=== PATIENT | male | born 2000 | race Caucasian/White ===

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

== ENCOUNTER 2019-07-24 07:08 | Emergency (ER) | payer SELFPAY ==
[~2019-07-24] VITALS: Ht 182.8 cm; Wt 93.7 kg
[~2019-07-24 07:08] MED LIST changes: +HYDR-4227 PO; -HYDR-756 PO; -TAMS0.4C98 PO; +TMSL.4C PO
--- NOTE | 2019-07-24 07:26 | ED GU-Male ---
General Stated Complaint: LOWER BACK PAIN Source: patient Exam Limitations: no limitations History of Present Illness Date Seen by Provider: Jul 24, 2019 Time Seen by Provider: 07:24 Initial Comments 18-year-old male presents with right flank pain. Patient reports that he has a history of kidney stones and this feels very similar. That he had pain this star angy yesterday in the right flank. That the last time he had pain this bad he had a have "laser surgery" to take the stone out. He denies any nausea or vomiting. He denies any fevers or chills. He does not complain of any blood in his urine at this time. And no dysuria. Allergies and Home Medications Allergies Coded Allergies: No Known Drug Allergies (Unverified , 01/11/17) Home Medications Hydrocodone/Acetaminophen 1 Each Tablet, 1 TAB PO Q6H Prescribed by: GINO ZIEGLER on 07/24/19 0901 Metoclopramide HCl 10 Mg Tablet, 10 MG PO Q8H Prescribed by: GION ZIEGLER on 07/24/19 0900 Prednisone 20 Mg Tab, 20 MG PO DAILY Prescribed by: SHAKIRA WYNN on 10/26/17 1550 Sulfamethoxazole/Trimethoprim 1 Each Tablet, 1 EACH PO BID Prescribed by: GINO ZIEGLER on 07/24/19 0900 Tamsulosin HCl 0.4 Mg Cap, 0.4 MG PO DAILY Prescribed by: GINO ZIEGLER on 07/24/19 0900 Patient Home Medication List Home Medication List Reviewed: Yes Review of Systems Review of Systems Constitutional: No chills, No dizziness, No fever Respiratory: No cough, No short of breath Cardiovascular: No chest pain, No palpitations Gastrointestinal: No abdominal pain, No nausea, No vomiting Genitourinary: denies burning, denies dysuria, denies frequency; flank pain; denies hematuria Musculoskeletal: no symptoms reported Skin: no symptoms reported Psychiatric/Neurological: No Symptoms Reported Past Vcdhhmu-Drezbz-Xtuaov Hx Past Med/Social Hx: Reviewed Nursing Past Med/Soc Hx Patient Social History Recent Hopitalizations: No Immunizations Up To Date PED Vaccines UTD: Yes Date of Influenza Vaccine: Feb 29, 2016 Seasonal Allergies Seasonal Allergies: No Past Medical History Surgeries: Yes Adenoidectomy, Tonsillectomy Respiratory: No Cardiac: No Neurological: No Reproductive Disorders: No Sexually Transmitted Disease: No HIV/AIDS: No Genitourinary: Yes Kidney Infection Gastrointestinal: No Musculoskeletal: No Endocrine: No HEENT: No Loss of Vision: Denies Hearing Impairment: Denies Cancer: No Psychosocial: No Integumentary: No Blood Disorders: No Adverse Reaction/Blood Tranf: No Family Medical History No Pertinent Family Hx Physical Exam Vital Signs Vital Signs - First Documented 07/24/19 07/24/19 07:17 09:25 Temp 36.8 Pulse 86 Resp 18 B/P (MAP) 148/87 (107) Pulse Ox 99 O2 Delivery Room Air Capillary Refill : Height, Weight, BMI Height: 6'0" Weight: 155lbs. 0.0oz. [id number]; 21.3 BMI Method:Stated General Appearance: WD/WN, no apparent distress HEENT: normal ENT inspection, TMs normal Neck: supple Cardiovascular: normal peripheral pulses, regular rate, rhythm Respiratory: chest non-tender, lungs clear Gastrointestinal: non tender, soft Back: CVA tenderness (R) Neurologic/Psychiatric: card setter II-XII nml as tested, alert, normal mood/affect, oriented x 3 Skin: normal color, warm/dry Progress/Results/Core Measures Suspected Sepsis SIRS Temperature: Pulse: Respiratory Rate: Blood Pressure / Mean: Results/Orders Lab Results Laboratory Tests Test 07/24/19 07:51 Range/Units Urine Color YELLOW Urine Clarity SL CLOUDY Urine pH 6.0 5-9 Urine Specific [place] >=1.030 1.016-1.022 Urine Protein TRACE H NEGATIVE Urine Glucose (UA) NEGATIVE NEGATIVE Urine Ketones NEGATIVE NEGATIVE Urine Nitrite NEGATIVE NEGATIVE Urine Bilirubin NEGATIVE NEGATIVE Urine Urobilinogen 0.2 < = 1.0 MG/DL Urine Leukocyte Esterase NEGATIVE NEGATIVE Urine RBC (Auto) 3+ H NEGATIVE Urine RBC >100 H /HPF Urine WBC 2-5 /HPF Urine Crystals NONE /LPF Urine Bacteria TRACE /HPF Urine Casts NONE /LPF Urine Mucus SMALL H /LPF Urine Culture Indicated NO My Orders Orders - GINO ZIEGLER DO Ct Abd/Pelvis Wo(Kidney Stone) (07/24/19 07:27) Abdomen/Kub 1view (07/24/19 07:27) Ed Iv/Invasive Line Start (07/24/19 07:27) Ua Culture If Indicated (07/24/19 07:27) Ketorolac Injection (Toradol Injection) (07/24/19 07:30) Ed Iv/Invasive Line Start (07/24/19 07:27) Lactated Ringers (Lr 1000 Ml Iv Solution (07/24/19 07:27) Medications Given in ED Current Medications Medications Dose Ordered Sig/Macey Route Start Time Stop Time Status Last Admin Dose Admin Ketorolac Tromethamine 15 mg ONCE ONCE IV 07/24/19 07:30 07/24/19 07:31 DC 07/24/19 07:40 15 MG Lactated Ringer's 1,000 ml @ 0 mls/hr Q0M ONCE IV 07/24/19 07:27 07/24/19 07:28 DC 07/24/19 07:39 1,000 MLS/HR Vital Signs/I&O 07/24/19 07/24/19 07:17 09:25 Temp 36.8 Pulse 86 72 Resp 18 18 B/P (MAP) 148/87 (107) 141/72 Pulse Ox 99 O2 Delivery Room Air Capillary Refill : Progress Note : Time: 11:30 Progress Note Patient with recurrent kidney stone. I reviewed CT results with him and recommended he either call or go over to Dr. Lubin's office on discharged from the emergency room to arrange for an of follow-up in the next 2-3 days. Patient was placed on Flomax, Bactrim and given pain and nausea medication. Patient was discharged home in stable condition. Diagnostic Imaging Comments [place] NAME: PRECIOUS WALDEN Isidro [facility] REC#: [id number] PT STATUS: REG ER : 2000 PHYSICIAN: GINO ZIEGLER DO ADMIT DATE: 07/24/19/ER Draft Date of Exam:07/24/19 CT ABD/PELVIS WO(KIDNEY STONE) PROCEDURE: CT urinary tract, rule out kidney stone. TECHNIQUE: Multiple contiguous axial images were obtained through the abdomen and pelvis without the use of intravenous contrast. Auto Exposure Controls were utilized during the CT exam to meet ALARA standards for radiation dose reduction. INDICATION: Right-sided pain, low back pain. History of renal stones. CORRELATION STUDY: 11/10/2017 FINDINGS: There is approximately 5 to 6 mm stone at the proximal right ureter. This is located at the plain at the approximately L3 level. There is slight asymmetric engorgement of the right kidney with tyjd-nr-icasfiry right-sided obstruction. An additional 4 mm nonobstructing stone at the interpolar region right kidney. Left kidney and collecting system unremarkable. The remainder of the abdominal structures appearing generally unremarkable on noncontrast imaging. Unenhanced liver is borderline enlarged. Gallbladder, spleen, pancreas and bilateral adrenal glands are unremarkable. Abdominal aorta normal in contour. Gastrointestinal tract with mild severity fecal retention. No obstruction or definitive inflammation. A few scattered colonic diverticuli are present. There is presence of a normal appendix low in the right hemipelvis. Urinary bladder relatively decompressed. Prostate gland and seminal vesicles appear unremarkable. A few calcifications are present appearing to be outside the course of the distal ureters. Visualized lung bases appearing clear. Heart size is borderline enlarged. Visualized osseous structures appearing unremarkable. Benign appearing sclerotic foci left pubic symphysis. IMPRESSION: 1. Ilfn-dr-auslotit right-sided obstructive uropathy owing to an approximately 5 to 6 mm stone located in the proximal right ureter. 2. Additional non-obstructing stone right kidney. Departure Impression Primary Impression: Ureteral calculus, left Disposition: 01 HOME, SELF-CARE Condition: Stable Departure-Patient Inst. Referrals: DENICE ALARCON MD (PCP) Primary Care Physician MANSOOR LESTER (Family) Primary Care Physician Patient Instructions: How to Strain Your Urine, Kidney Stones (DC), Renal Colic Add. Discharge Instructions: Please call Dr. Lubin upon discharge to arrange a follow-up time in the next 1- 2 days Scripts Metoclopramide HCl (Reglan) 10 Mg Tablet 10 MG PO Q8H for Nausea/Vomiting, #14 TAB Prov: GINO ZIEGLER DO 3/4/20 Hydrocodone/Acetaminophen (Rincon 5-325 Tablet) 1 Each Tablet 1 TAB PO Q6H for Pain MDD 10 TABS, #8 TAB Prov: MELANIE ZIEGLERR L DO 3/4/20 Sulfamethoxazole/Trimethoprim (Bactrim Ds Tablet) 1 Each Tablet 1 EACH PO BID, #14 TAB Prov: MELANIE ZIEGLERR L DO 3/4/20 Tamsulosin HCl (Flomax) 0.4 Mg Cap 0.4 MG PO DAILY, #14 CAP Prov: MELANIE ZIGELERR L DO 3/4/20 GINO ZIEGLER DO Jul 24, 2019 07:26
[2019-07-24] MEDS ORDERED: LACTATED RINGERS 1,000 ML IV ONE (07:27)
[2019-07-24] MEDS ORDERED: KETOROLAC 30 MG/ML VIAL IV ONE (07:30)
[2019-07-24 07:54] LABS: BILIRUBIN,URINE NEGATIVE (NEGATIVE); CLARITY,URINE SL CLOUDY; COLOR,URINE YELLOW; GLUCOSE, URINE (UA) NEGATIVE (NEGATIVE); KETONES,URINE NEGATIVE (NEGATIVE); LEUKOCYTE ESTERASE ,URINE NEGATIVE (NEGATIVE); NITRITE,URINE NEGATIVE (NEGATIVE); PROTEIN,URINE TRACE (NEGATIVE)
[2019-07-24 08:03] LABS: BACTERIA,URINE TRACE /HPF; RBC,URINE >100 /HPF
--- NOTE | 2019-07-24 08:27 | Diagnostic Imaging Report ---
PROCEDURE: CT urinary tract, rule out kidney stone. TECHNIQUE: Multiple contiguous axial images were obtained through the abdomen and pelvis without the use of intravenous contrast. Auto Exposure Controls were utilized during the CT exam to meet ALARA standards for radiation dose reduction. INDICATION: Right-sided pain, low back pain. History of renal stones. CORRELATION STUDY: 11/10/2017 FINDINGS: There is approximately 5 to 6 mm stone at the proximal right ureter. This is located at the plain at the approximately L3 level. There is slight asymmetric engorgement of the right kidney with ebnb-pj-ucgqgvax right-sided obstruction. An additional 4 mm nonobstructing stone at the interpolar region right kidney. Left kidney and collecting system unremarkable. The remainder of the abdominal structures appearing generally unremarkable on noncontrast imaging. Unenhanced liver is borderline enlarged. Gallbladder, spleen, pancreas and bilateral adrenal glands are unremarkable. Abdominal aorta normal in contour. Gastrointestinal tract with mild severity fecal retention. No obstruction or definitive inflammation. A few scattered colonic diverticuli are present. There is presence of a normal appendix low in the right hemipelvis. Urinary bladder relatively decompressed. Prostate gland and seminal vesicles appear unremarkable. A few calcifications are present appearing to be outside the course of the distal ureters. Visualized lung bases appearing clear. Heart size is borderline enlarged. Visualized osseous structures appearing unremarkable. Benign appearing sclerotic foci left pubic symphysis. IMPRESSION: 1. Dzts-zx-anttodiz right-sided obstructive uropathy owing to an approximately 5 to 6 mm stone located in the proximal right ureter. 2. Additional non-obstructing stone right kidney. Dictated by: Dictated on workstation # [id number]
--- NOTE | 2019-07-24 08:30 | Diagnostic Imaging Report ---
INDICATION: Flank pain. COMPARISON: CT abdomen and pelvis performed earlier same day. FINDINGS: The 4 mm stone in the proximal right ureter near the UPJ is noted by radiography. The other 3-4 mm stone in the upper pole of the right kidney is also present. Nonobstructive bowel gas pattern. No free intraperitoneal air. Normal regional skeleton. IMPRESSION: 1. The proximal right ureteral stone and right renal stone are both seen by radiography, but better characterized by recent CT. Dictated by: Dictated on workstation # [id number]
[2019-07-24] MEDS ORDERED: METO-310 PO (09:00)
[2019-07-24] MEDS ORDERED: HYDR-4226 PO (09:00)
[2019-07-24] MEDS ORDERED: SULF1TAB35 PO (09:00)
[2019-07-24] MEDS ORDERED: TMSL.4C PO (09:00)
[2019-07-24 09:25] VITALS: BP 141/72
--- OUTSIDE RECORDS SUMMARY | 2019-07-29 05:37 | XMS REPORT | Clinical Summary ---
Author Author [facility] Organization [facility] Address Unknown Phone Unavailable Care Team Providers Care Active Directory Specialist Name Role Phone Norma Brewster MD PCP Source Comments Some departments are not documenting in the electronic medical record. If you d o not see the information that you expected, contact Release of Information in [facility] Information [employer] department at [phone] for further assistan ce in locating additional records.[facility] Allergies No Known Allergies Medications End Date Status Medication Sig Dispensed Refills Start Date Active NO HOME MEDICATIONS 0 Active oxyCODONE/acetaminophen Take 1 tablet 20 tablet 0 (ENDOCET) 5/325 mg tablet by mouth 7 every 4 hours as needed for Pain Active hyoscyamine sulfate Place 1 60 tablet 2 (LEVSIN/SL) 0.125 mg tablet under 7 sublingual tablet tongue every 4 hours as needed (bladder spasms). Active oxybutynin chloride Take 1 tablet 60 tablet 3 02/19 (DITROPAN) 5 mg tablet by mouth 7 three times daily as needed (bladder spasms). Active Problems Problem Noted Date Kidney stones 02/16/2017 Renal stone 02/16/2017 Overview: Added automatically from request for jerry mirza [id number] Social History Date Tobacco Use Types Packs/Day Years Used Never Smoker Smokeless Tobacco: Never Used Drinks/Week oz/Week Comments Alcohol Use 1 Cans of beer 1.0 Yes Sex Assigned at Date Recorded Not on file Industry Job Start Date Occupation Not on file Not on file Not on file Travel End Travel History Travel Start No recent travel history available. Last Filed Vital Signs Reading Time Taken Comments Vital Sign 116/54 03/03/2017 3:30 PM CDT Blood Pressure 54 03/03/2017 3:30 PM CDT Pulse 36.9 C (98.5 F) 03/03/2017 3:30 PM CDT Temperature - - Respiratory Rate 100% 03/03/2017 3:30 PM CDT Oxygen Saturation - - Inhaled Oxygen Concentration 68 kg (149 lb 14.6 oz) 03/03/2017 11:50 AM CDT Weight 188 cm (6' 2") 02/23/2017 10:40 AM CDT Height 19.25 02/23/2017 10:40 AM CDT Body Mass Index Plan of Treatment Health Maintenance Due Date Last Done Comments DTAP/TDAP VACCINES (1 - 2009 Tdap) HPV VACCINES (2 - Male 09/29/2013 04/01/2013 2-dose series) HIV SCREENING 2013 PHYSICAL (COMPREHENSIVE) 2016 EXAM INFLUENZA VACCINE 12/20/2018 MENINGOCOCCAL VACCINE Aged Out 04/01/2013 No longe r eligible based (ACWY,Menactra) on patient's age to complete this topic Implants Device Identifier Shelf Expiration Date Model / Serial / L ot Implanted Type Area Manufactur er 11/14/2019 [id number] / [id number] / [id number] Stent Ureteral 6fr 26cm Pigtail Right: Ureter BOSTO N Curve Taper Tip Bladder Cristian - [employer] [id number] UROLOGY Implanted: Qty: 1 on 03/03/2017 by Nish Owen MD at [facility] Results Not on filefrom Last 3 Months Insurance Type Payer Benefit Subscriber ID Effective Phone Address Plan / Dates Group Medicaid [facility] MEDICAID [facility] xxxxxxxxxxx [id number] [employer] [place] [place] Advance Directives Patient Installation Manager Explanation Type Date Recorded Advance Directive/DPOA
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
== END 2019-07-24 09:30 | disposition home or self-care (01) ==
LOC: EDUNIT# 07:08 → ER 07:09
DX: N20.1 Calculus of ureter (principal); Z79.52 Long term (current) use of systemic steroids
CPT/HCPCS: 74018; 74176; 81000

== ENCOUNTER 2019-07-27 14:44 | Emergency (ER) | payer SELFPAY ==
[~2019-07-27] VITALS: Ht 180 cm; Wt 90.0 kg
[~2019-07-27 14:44] MED LIST changes: +HYDR-4226 PO; +METO-310 PO
--- NOTE | 2019-07-27 15:22 | ED GU-Female ---
General Chief Complaint: - Urinary Stated Complaint: BACK / ABD PAIN Nursing Triage Note: THE PT IS AMBULATORY TO THE ROOM WITHOUT DIFFICULTY. NO DISTRESS IS SEEN ON ARRIVAL./ LOC IS NORMAL FOR THE PT. THE PT WAS SEEN HERE LAST MON. Nursing Sepsis Screen: No Definite Risk Source: patient Exam Limitations: no limitations History of Present Illness Date Seen by Provider: Jul 27, 2019 Time Seen by Provider: 15:22 Initial Comments 18-year-old male patient presents with complaints of right-sided kidney stone. Patient states the pain increased this a.m. Also complains of poor appetite and fluid intake d/t nausea. He denies fevers or chills. He has noted some difficulty with urination. Patient was seen in the emergency department by Dr. Ziegler on Monday and diagnosed with a right-sided kidney stone. Pt did not follow-up with Dr. Wilson or a primary care provider. Timing/Duration: getting worse, other (four-day onset) Severity/Quality: cramping, sharp Location: right flank Radiation: RLQ, back (right low back) Activities at Onset: none Prior Genitourinary Problems: similar symptoms Allergies and Home Medications Allergies Coded Allergies: No Known Drug Allergies (Unverified , 01/11/17) Home Medications Hydrocodone/Acetaminophen 1 Each Tablet, 1 TAB PO Q6H Prescribed by: GINO ZIEGLER on 07/24/19 0901 Hydrocodone/Acetaminophen 1 Each Tablet, 1 TAB PO Q4-6HR Prescribed by: ROMEL WOLFE on 07/27/19 174 Levofloxacin 500 Mg Tablet, 500 MG PO DAILY Prescribed by: ROMEL WOLFE on 07/27/19 174 Metoclopramide HCl 10 Mg Tablet, 10 MG PO Q8H Prescribed by: GINO ZIEGLER on 07/24/19 09 Phenazopyridine HCl 200 Mg Tablet, 1 TAB PO TID Prescribed by: ROMEL WOLFE on 07/27/19 174 Prednisone 20 Mg Tab, 20 MG PO DAILY Prescribed by: SHAKIRA WYNN on 10/26/17 1550 Sulfamethoxazole/Trimethoprim 1 Each Tablet, 1 EACH PO BID Prescribed by: GINO ZIEGLER on 07/24/19 09 Tamsulosin HCl 0.4 Mg Cap, 0.4 MG PO DAILY Prescribed by: GINO ZIEGLER on 07/24/19 0900 Patient Home Medication List Home Medication List Reviewed: Yes Review of Systems Review of Systems Constitutional: No chills, No diaphoresis, No fever, No malaise Respiratory: No cough, No phlegm, No short of breath Cardiovascular: No chest pain, No palpitations, No syncope Gastrointestinal: abdominal pain (RLQ); No constipation, No diarrhea, No hematemesis; loss of appetite; No melena; nausea; No vomiting Genitourinary: see HPI; denies burning, denies dysuria; frequency, flank pain (right flank pain), hematuria, pain, urgency, other (hesitancy) Musculoskeletal: see HPI, back pain (right low back pain) Skin: no symptoms reported Psychiatric/Neurological: No Symptoms Reported All Other Systemes Reviewed Negative Unless Noted: Yes (Negative excepted noted.) Past Ijrfdao-Dgvzsu-Svvyvc Hx Patient Social History Recent Foreign Travel: No Contact w/Someone Who Travel: No Recent Infectious Disease Expo: No Recent Hopitalizations: No Immunizations Up To Date PED Vaccines UTD: Yes Date of Influenza Vaccine: Feb 29, 2016 Seasonal Allergies Seasonal Allergies: No Past Medical History Surgeries: Yes (cystoscopy with lithotripsy) Adenoidectomy, Tonsillectomy Respiratory: No Cardiac: No Neurological: No Reproductive Disorders: No Sexually Transmitted Disease: No HIV/AIDS: No Genitourinary: Yes Kidney Infection, Kidney Stones Gastrointestinal: No Musculoskeletal: No Endocrine: No HEENT: No Loss of Vision: Denies Hearing Impairment: Denies Cancer: No Psychosocial: No Integumentary: No Blood Disorders: No Adverse Reaction/Blood Tranf: No Family Medical History Reviewed Nursing Family Hx No Pertinent Family Hx Physical Exam Vital Signs Vital Signs - First Documented 07/27/19 07/27/19 15:04 17:54 Temp 36.6 Pulse 94 Resp 18 B/P (MAP) 138/82 (100) Pulse Ox 98 Capillary Refill : Less Than 3 Seconds Height, Weight, BMI Height: 6'0" Weight: 155lbs. 0.0oz. 70.382206eb; 27.00 BMI Method:Stated General Appearance: WD/WN, mild distress HEENT: PERRL/EOMI, pharynx normal Neck: supple, normal inspection Cardiovascular: normal peripheral pulses, regular rate, rhythm, no edema, no gallop, no murmur Respiratory: lungs clear, normal breath sounds, no respiratory distress, no accessory muscle use Gastrointestinal: normal bowel sounds, soft, no organomegaly; No no pulsatile mass, No distended; guarding (right lower quadrant and right flank); No rebound; tenderness (right lower quadrant and right flank tenderness) Back: normal inspection, CVA tenderness (R); No CVA tenderness (L) Extremities: no pedal edema, normal capillary refill Neurologic/Psychiatric: alert, normal mood/affect, oriented x 3 Skin: normal color, warm/dry Progress/Results/Core Measures Suspected Sepsis Recent Fever Within 48 Hours: No Infection Criteria Present: None New/Unexplained Altered Menta: No Sepsis Screen: No Definite Risk SIRS Temperature: Pulse: 94 Respiratory Rate: 18 Laboratory Tests 07/27/19 15:40: White Blood Count 10.1 Blood Pressure 138 /82 Mean: 100 Laboratory Tests 07/27/19 15:40: Creatinine 1.23, Platelet Count 212, Total Bilirubin 1.0 Results/Orders Lab Results Laboratory Tests Test 07/27/19 15:18 07/27/19 15:40 Range/Units Urine Color JEANNE H Urine Clarity TURBID Urine pH 6.0 5-9 Urine Specific [place] >=1.030 1.016-1.022 Urine Protein 1+ H NEGATIVE Urine Glucose (UA) NEGATIVE NEGATIVE Urine Ketones 2+ H NEGATIVE Urine Nitrite POSITIVE H NEGATIVE Urine Bilirubin 1+ H NEGATIVE Urine Urobilinogen 0.2 < = 1.0 MG/DL Urine Leukocyte Esterase TRACE H NEGATIVE Urine RBC (Auto) 3+ H NEGATIVE Urine RBC TNTC H /HPF Urine WBC NONE /HPF Urine Squamous Epithelial Cells NONE /HPF Urine Crystals NONE /LPF Urine Bacteria NEGATIVE /HPF Urine Casts NONE /LPF Urine Mucus NEGATIVE /LPF Urine Culture Indicated YES White Blood Count 10.1 4.3-11.0 10^3/uL Red Blood Count 4.60 4.35-5.85 10^6/uL Hemoglobin 13.9 13.3-17.7 G/DL Hematocrit 41 40-54 % Mean Corpuscular Volume 88 80-99 FL Mean Corpuscular Hemoglobin 30 25-34 PG Mean Corpuscular Hemoglobin Concent 34 32-36 G/DL Red Cell Distribution Width 12.3 10.0-14.5 % Platelet Count 212 130-400 10^3/uL Mean Platelet Volume 10.3 7.4-10.4 FL Neutrophils (%) (Auto) 81 H 42-75 % Lymphocytes (%) (Auto) 8 L 12-44 % Monocytes (%) (Auto) 10 0-12 % Eosinophils (%) (Auto) 0 0-10 % Basophils (%) (Auto) 0 0-10 % Neutrophils # (Auto) 8.2 H 1.8-7.8 X 10^3 Lymphocytes # (Auto) 0.8 L 1.0-4.0 X 10^3 Monocytes # (Auto) 1.0 0.0-1.0 X 10^3 Eosinophils # (Auto) 0.0 0.0-0.3 10^3/uL Basophils # (Auto) 0.0 0.0-0.1 10^3/uL Sodium Level 136 135-145 MMOL/L Potassium Level 4.4 3.6-5.0 MMOL/L Chloride Level 105 98-107 MMOL/L Carbon Dioxide Level 20 L 21-32 MMOL/L Anion Gap 11 5-14 MMOL/L Blood Urea Nitrogen 15 7-18 MG/DL Creatinine 1.23 0.60-1.30 MG/DL Estimat Glomerular Filtration Rate > 60 BUN/Creatinine Ratio 12 Glucose Level 89 70-105 MG/DL Calcium Level 9.5 8.5-10.1 MG/DL Corrected Calcium 8.5-10.1 MG/DL Total Bilirubin 1.0 0.1-1.0 MG/DL Aspartate Amino Transf (AST/SGOT) 32 5-34 U/L Alanine Aminotransferase (ALT/SGPT) 29 0-55 U/L Alkaline Phosphatase 99 40-136 U/L Total Protein 7.4 6.4-8.2 GM/DL Albumin 4.6 H 3.2-4.5 GM/DL My Orders Orders - ROMEL WOLFE Ed Iv/Invasive Line Start (07/27/19 15:21) Abdomen/Kub 1view (07/27/19 15:21) Cbc With Automated Diff (07/27/19 15:21) Comprehensive Metabolic Panel (07/27/19 15:21) Ua Culture If Indicated (07/27/19 15:21) Ketorolac Injection (Toradol Injection) (07/27/19 15:29) Ondansetron Injection (Zofran Injectio (07/27/19 15:30) Ns Iv 1000 Ml (Sodium Chloride 0.9%) (07/27/19 15:29) Ed Iv/Invasive Line Start (07/27/19 16:48) Ns Iv 1000 Ml (Sodium Chloride 0.9%) (07/27/19 16:48) Morphine Injection (Morphine Injection (07/27/19 17:00) Phenazopyridine Tablet (Pyridium Tablet) (07/27/19 17:00) Levofloxacin Tablet (Levaquin Tablet) (07/27/19 17:00) Urine Culture (07/27/19 15:18) Medications Given in ED Vital Signs/I&O 07/28/19 00:00 Intake Total 2000 ml Balance 2000 ml Capillary Refill : Less Than 3 Seconds 2 Blood Pressure Mean: 100 Diagnostic Imaging Diagonstic Imaging: Xray Plain Films/CT/US/NM/MRI: abdomen Comments Date of Exam:07/27/19 ABDOMEN/KUB 1VIEW INDICATION: Kidney stones, pain. COMPARISON: July 24, 2019. TECHNIQUE: Single radiograph of the abdomen dated July 27, 2019. FINDINGS: A 5 mm calcification is identified within the right lower pelvis, appearing new from the prior examination. Previously noted 5 mm calcification within the right mid abdomen is no longer visualized. Phleboliths within the left pelvis. Nonobstructive bowel gas pattern. No free air. No additional calcifications overlying the renal shadows. No acute osseous abnormality. IMPRESSION: 5 mm calcification within the right lower pelvis, new from the prior examination. This likely relates to previously noted right-sided ureterolith, which has migrated since the prior examination. This now overlies the expected location of the right ureterovesicular junction. Dictated by: Dictated on workstation # [id number] Dict: 07/27/19 1641 Trans: 07/27/19 1722 [id number] Reviewed: Reviewed by Me (radiology report reviewed by me) Departure Communication (Admissions) Patient seen and evaluated. Labs and KUB pain. Patient was given 2 L of normal saline, Zofran, 30 mg of Toradol IV, and 4 mg of morphine IV with improvement in symptoms. Patient reported pain was rated at a 1 out of 10 after medications and IV fluids. KUB does show progression of the stone to the UVJ. We'll plan for discharge with follow-up as an outpatient with Dr. Wilson this week for recheck. Patient is to call for appointment time. I've instructed the patient to return to the emergency department for worsened symptoms or any other concerns. Impression Primary Impression: Urinary tract infection Qualified Codes: N30.01 - Acute cystitis with hematuria Additional Impression: Right distal ureteral calculus Disposition: HOME, SELF-CARE Condition: Improved Departure-Patient Inst. Decision time for Depature: 17:37 Referrals: NO,LOCAL PHYSICIAN (PCP) Primary Care Physician LORETO WILSON MD Patient Instructions: Urinary Tract Infection, Adult (DC), Urinary Obstruction (DC) Add. Discharge Instructions: All discharge instructions reviewed with patient and/or family. Voiced understanding. Medications as instructed. Stop the Bactrim and Flomax. Stay well hydrated. Ibuprofen 800 mg by mouth every 8 hours as needed for pain. Follow-up with Dr. Wilson this week for recheck. Call his office Monday morning for appointment time. Return in the emergency department for worsened symptoms, fever, inability to urinate, blood in the urine, or any other concerns. Scripts Hydrocodone/Acetaminophen (Hydrocodone/Acetaminophen 5 MG/325 MG TAB) 1 Each Tablet 1 TAB PO Q4-6HR for Pain MDD 10 TABS, #14 TAB 0 Refills Prov: ROMEL WOLFE 07/27/19 Levofloxacin (Levofloxacin) 500 Mg Tablet 500 MG PO DAILY, #7 TAB 0 Refills Prov: ROMEL WOLFE 07/27/19 Phenazopyridine HCl (Pyridium) 200 Mg Tablet 1 TAB PO TID, #14 TAB 1 Refill Prov: ROMEL WOLFE 07/27/19 ROMEL WOLFE Jul 27, 2019 15:22
[2019-07-27 15:26] LABS: CLARITY,URINE TURBID; COLOR,URINE AMBER; GLUCOSE, URINE (UA) NEGATIVE (NEGATIVE); KETONES,URINE 2+ (NEGATIVE); LEUKOCYTE ESTERASE ,URINE TRACE (NEGATIVE); NITRITE,URINE POSITIVE (NEGATIVE); PROTEIN,URINE 1+ (NEGATIVE)
[2019-07-27] MEDS ORDERED: KETOROLAC 30 MG/ML VIAL IVP STA (15:29)
[2019-07-27] MEDS ORDERED: NS IV 1000 ML 1,000 ML IV ONE ×2 (15:29→16:48)
[2019-07-27] MEDS ORDERED: ONDANSETRON 4 MG/2 ML (SDV) Z0FRAN IVP ONE (15:30)
[2019-07-27 15:34] LABS: BACTERIA,URINE NEGATIVE /HPF; RBC,URINE TNTC /HPF
[2019-07-27 16:12] LABS: BASOPHILS % (AUTO) 0 % (0-10); EOSINOPHILS % (AUTO) 0 % (0-10); HEMATOCRIT 41 % (40-54); HEMOGLOBIN 13.9 G/DL (13.3-17.7); LYMPHOCYTES # (AUTO) 0.8 X 10^3 (1.0-4.0); LYMPHOCYTES % (AUTO) 8 % (12-44); MEAN CORPUSCULAR HEMOGLOBIN 30 PG (25-34); MEAN CORPUSCULAR HGB CONC 34 G/DL (32-36); MEAN CORPUSCULAR VOLUME 88 FL (80-99); MEAN PLATELET VOLUME 10.3 FL (7.4-10.4); MONOCYTES % (AUTO) 10 % (0-12); NEUTROPHILS # (AUTO) 8.2 X 10^3 (1.8-7.8); NEUTROPHILS % (AUTO) 81 % (42-75); PLATELET COUNT 212 10^3/uL (130-400); RED CELL DISTRIBUTION WIDTH 12.3 % (10.0-14.5); WHITE BLOOD COUNT 10.1 10^3/uL (4.3-11.0)
[2019-07-27 16:27] LABS: ALANINE AMINOTRANSFERASE 29 U/L (0-55); ALBUMIN 4.6 GM/DL (3.2-4.5); ALKALINE PHOSPHATASE 99 U/L (40-136); BUN/CREATININE RATIO 12; CALCIUM 9.5 MG/DL (8.5-10.1); CARBON DIOXIDE 20 MMOL/L (21-32); CHLORIDE 105 MMOL/L (98-107); CREATININE SERUM 1.23 MG/DL (0.60-1.30); GFR ESTIMATED > 60; GLUCOSE 89 MG/DL (70-105); POTASSIUM 4.4 MMOL/L (3.6-5.0); SODIUM 136 MMOL/L (135-145); TOTAL PROTEIN 7.4 GM/DL (6.4-8.2)
[2019-07-27] MEDS ORDERED: PHENAZOPYRIDINE 100 MG (PYRIDIUM) TABLET PO ONE (17:00)
[2019-07-27] MEDS ORDERED: LEVOFLOXACIN 500 MG TAB (LEVAQUIN) PO ONE (17:00)
[2019-07-27] MEDS ORDERED: morphine INJ 10 MG/ML 1ML (SYR OR VIAL) IVP ONE (17:00)
--- NOTE | 2019-07-27 17:01 | Diagnostic Imaging Report ---
INDICATION: Kidney stones, pain. COMPARISON: July 24, 2019. TECHNIQUE: Single radiograph of the abdomen dated July 27, 2019. FINDINGS: A 5 mm calcification is identified within the right lower pelvis, appearing new from the prior examination. Previously noted 5 mm calcification within the right mid abdomen is no longer visualized. Phleboliths within the left pelvis. Nonobstructive bowel gas pattern. No free air. No additional calcifications overlying the renal shadows. No acute osseous abnormality. IMPRESSION: 5 mm calcification within the right lower pelvis, new from the prior examination. This likely relates to previously noted right-sided ureterolith, which has migrated since the prior examination. This now overlies the expected location of the right ureterovesicular junction. Dictated by: Dictated on workstation # [id number]
[2019-07-27] MEDS ORDERED: LEVO500T80 PO (17:40)
[2019-07-27] MEDS ORDERED: PHEN-640 PO (17:40)
[2019-07-27] MEDS ORDERED: HYDR-4226 PO (17:40)
[2019-07-27 17:54] VITALS: BP 125/76
[2019-07-28 09:52] LABS: BILIRUBIN,URINE 1+ (NEGATIVE)
--- OUTSIDE RECORDS SUMMARY | 2019-07-31 01:41 | XMS REPORT | Clinical Summary ---
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 If you d o not see the information that you expected, contact Release of Information in [facility] [employer] Information Management department at [phone] for further assistan ce in locating additional records.[facility] Allergies No Known Allergies Medications End Date [...] Added automatically from request for jerry mirza [id number] Social History Date Tobacco Use Types Packs/Day [...] ot Implanted Type Area Manufactur er 11/14/2019 [id number] / [id number] / [id number] Stent Ureteral 6fr 26cm Pigtail Right: Ureter BOSTO N Curve Taper Tip Bladder Cristian - [employer]ENT[employer] [id number] UROLOGY Implanted: Qty: 1 on 03/03/2017 by Nish Owen MD at [facility] Results Not on filefrom Last 3 Months Insurance Type Payer Benefit Subscriber ID Effective Phone Address Plan / Dates Group Medicaid [facility] MEDICAID [facility] xxxxxxxxxxx [id number] [employer] [place] Advance Directives Patient Funder Explanation Type Date Recorded Advance Directive/DPOA
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
== END 2019-07-27 17:54 | disposition home or self-care (01) ==
LOC: EDUNIT# 14:44 → ER 14:45
DX: N39.0 Urinary tract infection, site not specified (principal); N20.1 Calculus of ureter; Z79.52 Long term (current) use of systemic steroids
CPT/HCPCS: 36415; 74018; 80053; 81000; 85025; 87088

== ENCOUNTER 2020-03-07 20:28 | Emergency (ER) | payer SELFPAY ==
[~2020-03-07] VITALS: Ht 182.8 cm; Wt 86.1 kg
[~2020-03-07 20:28] MED LIST changes: +LEVO500T80 PO; +PHEN-640 PO
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
[2020-03-07] MEDS ORDERED: TETANUS,DIPTH,PERTUSS P/F (BOOSTRIX) 0.5 ML VIAL IM ONE (20:45)
[2020-03-07] MEDS ORDERED: RX-TRAMADOL 50 MG (ULTRAM) TAB PPK#4 PO STA (20:57)
--- NOTE | 2020-03-07 20:59 | Diagnostic Imaging Report ---
INDICATION: Right hand injury. EXAMINATION: Three views of the right hand were obtained. FINDINGS: There is a nondisplaced minimally angulated fracture of the head of the 5th metacarpal. IMPRESSION: Boxer's fracture of head of the right 5th metacarpal. Dictated by: Dictated on workstation # [id number]
[2020-03-07] MEDS ORDERED: TRAM-42 PO (21:03)
[2020-03-07 21:15] VITALS: BP 134/77
== END 2020-03-07 21:15 | disposition home or self-care (01) ==
LOC: EDUNIT# 20:28 → ER 20:30
DX: S62.346A Nondisplaced fracture of base of fifth metacarpal bone, right hand, initial encounter for closed fracture (principal); Z23 Encounter for immunization; Z79.52 Long term (current) use of systemic steroids; Z88.8 Allergy status to other drugs, medicaments and biological substances; W22.8XXA Striking against or struck by other objects, initial encounter
CPT/HCPCS: 73130; 90715

== ENCOUNTER → 2020-03-11 | Outpatient (CLI) | payer SELFPAY ==
[~2020-03-11] MED LIST changes: +TRAM-42 PO
== END ==
LOC: ORTHO 09:31
PROVIDERS: ATTEND Orthopaedic Surgery
DX: S62.366A Nondisplaced fracture of neck of fifth metacarpal bone, right hand, initial encounter for closed fracture (principal); W22.09XA Striking against other stationary object, initial encounter; Z90.89 Acquired absence of other organs; Z87.442 Personal history of urinary calculi

== ENCOUNTER 2020-07-12 14:19 | Emergency (ER) | payer SELFPAY ==
[~2020-07-12] VITALS: Ht 182 cm; Wt 86.0 kg
[2020-07-12] MEDS ORDERED: KETOROLAC 30 MG/ML VIAL IVP STA (14:49)
[2020-07-12] MEDS ORDERED: LACTATED RINGERS 1,000 ML IV STA (14:49)
[2020-07-12 14:58] LABS: BASOPHILS % (AUTO) 0 % (0-10); BILIRUBIN,URINE NEGATIVE (NEGATIVE); CLARITY,URINE SL CLOUDY; COLOR,URINE YELLOW; EOSINOPHILS # (AUTO) 0.1 10^3/uL (0.0-0.3); EOSINOPHILS % (AUTO) 2 % (0-10); GLUCOSE, URINE (UA) NEGATIVE (NEGATIVE); HEMATOCRIT 46 % (40-54); HEMOGLOBIN 15.3 g/dL (13.3-17.7); KETONES,URINE NEGATIVE (NEGATIVE); LEUKOCYTE ESTERASE ,URINE NEGATIVE (NEGATIVE); LYMPHOCYTES # (AUTO) 2.1 10^3/uL (1.0-4.0); LYMPHOCYTES % (AUTO) 31 % (12-44); MEAN CORPUSCULAR HEMOGLOBIN 31 pg (25-34); MEAN CORPUSCULAR HGB CONC 34 g/dL (32-36); MEAN CORPUSCULAR VOLUME 92 fL (80-99); MEAN PLATELET VOLUME 10.7 fL (9.0-12.2); MONOCYTES # (AUTO) 0.6 10^3/uL (0.0-1.0); MONOCYTES % (AUTO) 9 % (0-12); NEUTROPHILS % (AUTO) 58 % (42-75); NITRITE,URINE NEGATIVE (NEGATIVE); PLATELET COUNT 213 10^3/uL (130-400); PROTEIN,URINE NEGATIVE (NEGATIVE); WHITE BLOOD COUNT 6.8 10^3/uL (4.3-11.0)
--- NOTE | 2020-07-12 15:01 | ED Abdominal Pain ---
General Chief Complaint: Abdominal/GI Problems Stated Complaint: ABD PAIN Nursing Triage Note: ARRIVED VIA AMB TO ROOM 04 WITH COMPLAINTS OF RIGHT FLANK AND MID ABD PAIN X1 WEEK. Sepsis Screen: No Definite Risk Source of Information: Patient Exam Limitations: No Limitations (YU SALMON) History of Present Illness Date Seen by Provider: Jul 12, 2020 Time Seen by Provider: 14:43 Initial Comments Pt here by private vehicle for abdominal pain for the last week. He states it is centrally located and feels like a pressure more than a pain. He has a history of kidney stones and states that he has chronic pain associated with it and this pain is not the same. He states the pain is worse with driving in the car and sitting down. He also reports having trouble with his bowel movements stating they are small and hard recently with a hemorrhoid that he has pushed in several times before. He also reports having some burning when he urinates that seems worse when he drinks more water. He denies any vomting, fever, chills, chest pa in, or SOA. He has taken some ibuprofen for the pain and associated headaches. Timing/Duration: 1 Week Severity/Quality: Moderate, Aching, Full Location: Epigastric Radiation: No Radiation Activities at Onset: Activity, Rest Modifying Factors: Worsens With Movement, Worsens With Palpation, Worsens With Other (Riding in car) Associated Symptoms: No Chest Pain, No Fever/Chills; Headache; No Nausea/Vomiting, No Shortness of Air (YU SALMON) Timing/Duration: 1 Week Severity/Quality: Moderate, Aching, Cramping, Full Location: Epigastric Radiation: No Radiation Modifying Factors: Worsens With Movement, Worsens With Palpation; Improves With Resting Associated Symptoms: No Fever/Chills, No Nausea/Vomiting, No Shortness of Air (LAWRENCE DUTTON MD) Allergies and Home Medications Allergies Coded Allergies: tamsulosin (Verified Allergy, Intermediate, facial swelling, 07/28/19) Home Medications Hydrocodone/Acetaminophen 1 Each Tablet, 1 TAB PO Q6H Prescribed by: GINO ZIEGLER on 07/24/19 0901 Hydrocodone/Acetaminophen 1 Each Tablet, 1 TAB PO Q4-6HR Prescribed by: ROMEL WOLFE on 07/27/19 1740 Levofloxacin 500 Mg Tablet, 500 MG PO DAILY Prescribed by: ROMEL WOLFE on 07/27/19 174 Metoclopramide HCl 10 Mg Tablet, 10 MG PO Q8H Prescribed by: GINO ZIEGLER on 07/24/19 0900 Phenazopyridine HCl 200 Mg Tablet, 1 TAB PO TID Prescribed by: ROMEL WOLFE on 07/27/19 174 Prednisone 20 Mg Tab, 20 MG PO DAILY Prescribed by: SHAKIRA WYNN on 10/26/17 1550 Sulfamethoxazole/Trimethoprim 1 Each Tablet, 1 EACH PO BID Prescribed by: GINO ZIEGLER on 07/24/19 0900 Tamsulosin HCl 0.4 Mg Cap, 0.4 MG PO DAILY Prescribed by: GINO ZIEGLER on 07/24/19 09 Tramadol HCl 50 Mg Tablet, 50 MG PO Q4H Prescribed by: FARZANA PINEDA on 03/07/202102 Patient Home Medication List Home Medication List Reviewed: Yes (LAWRENCE DUTTON MD) Review of Systems Review of Systems Constitutional: No chills, No fever, No weakness EENTM: No Nose Congestion, No Throat Pain Respiratory: Denies Cough, Denies Shortness of Air Cardiovascular: Denies Chest Pain, Denies Palpitations Gastrointestinal: Abdominal Pain, Constipated; Denies Diarrhea, Denies Nausea, Denies Poor Appetite, Denies Vomiting Genitourinary: Burning, Flank Pain Musculoskeletal: No back pain, No muscle weakness Skin: No pruritus, No rash Psychiatric/Neurological: Headache; Denies Numbness, Denies Tingling (YU SALMON) Gastrointestinal: Abdominal Pain Genitourinary: Burning, Pain (LAWRENCE DUTTON MD) All Other Systems Reviewed Negative Unless Noted: Yes (LAWRENCE DUTTON MD) Past Bvyalsq-Fczfuw-Znpeea Hx Past Med/Social Hx: Reviewed Nursing Past Med/Soc Hx (LAWRENCE DUTTON MD) Patient Social History Alcohol Use: Occasionally Uses Drug of Choice: POT Smoking Status: Never a Smoker Recent Infectious Disease Expo: No Recent Hopitalizations: No (YU SALMON) Immunizations Up To Date Tetanus Booster (TDap): Unknown PED Vaccines UTD: Yes Date of Influenza Vaccine: Feb 29, 2016 (YU SALMON) Seasonal Allergies Seasonal Allergies: No (YU SALMON) Past Medical History Surgeries: Yes (cystoscopy with lithotripsy) Adenoidectomy, Renal, Tonsillectomy Respiratory: No Cardiac: No Neurological: No Reproductive Disorders: No Sexually Transmitted Disease: No HIV/AIDS: No Genitourinary: Yes Kidney Infection, Kidney Stones Gastrointestinal: No Musculoskeletal: No Endocrine: No HEENT: Yes (S/P T&A) Loss of Vision: Denies Hearing Impairment: Denies Cancer: No Psychosocial: No Integumentary: No Blood Disorders: No Adverse Reaction/Blood Tranf: No (YU SALMON) Family Medical History Reviewed Nursing Family Hx (LAWRENCE DUTTON MD) No Pertinent Family Hx (YU SALMON) No Pertinent Family Hx (LAWRENCE DUTTON MD) Physical Exam Vital Signs Vital Signs - First Documented 07/12/20 14:31 Temp 37.0 Pulse 148 Resp 16 B/P (MAP) 170/11 (63) Pulse Ox 98 O2 Delivery Room Air (LAWRENCE DUTTON MD) Vital Signs Capillary Refill : Less Than 3 Seconds (YU SALMON) Height/Weight/BMI Height: 6'0" Weight: 155lbs. 0.0oz. [id number]; 25.00 BMI Method:Stated General Appearance: WD/WN, mild distress HEENT: PERRL/EOMI, normal ENT inspection, pharynx normal Neck: non-tender, full range of motion, supple, normal inspection Respiratory: chest non-tender, lungs clear, normal breath sounds Cardiovascular: normal peripheral pulses, regular rate, rhythm, no edema, no murmur Gastrointestinal: soft, guarding (Involuntary), tenderness (Epigastric), other (Positive heel strike, ) Extremities: normal range of motion, non-tender, normal inspection, no pedal edema, no calf tenderness Back: normal inspection, no CVA tenderness, no vertebral tenderness Neurologic/Psychiatric: no motor/sensory deficits, alert, normal mood/affect, oriented x 3 Skin: normal color, warm/dry (YU SALMON) General Appearance: WD/WN, mild distress Neck: full range of motion, supple Respiratory: lungs clear, normal breath sounds Cardiovascular: regular rate, rhythm, no murmur Gastrointestinal: soft, guarding (Involuntary), tenderness (Epigastric) Extremities: non-tender, normal inspection Back: CVA tenderness (R) (Mild), CVA tenderness (L) (Mild) Neurologic/Psychiatric: alert, oriented x 3 Skin: normal color, warm/dry (LAWRENCE DUTTON MD) Progress/Results/Core Measures Results/Orders Lab Results Laboratory Tests Test 07/12/20 14:49 Range/Units White Blood Count 6.8 4.3-11.0 10^3/uL Red Blood Count 4.97 4.30-5.52 10^6/uL Hemoglobin 15.3 13.3-17.7 g/dL Hematocrit 46 40-54 % Mean Corpuscular Volume 92 80-99 fL Mean Corpuscular Hemoglobin 31 25-34 pg Mean Corpuscular Hemoglobin Concent 34 32-36 g/dL Red Cell Distribution Width 12.3 10.0-14.5 % Platelet Count 213 130-400 10^3/uL Mean Platelet Volume 10.7 9.0-12.2 fL Immature Granulocyte % (Auto) 0 % Neutrophils (%) (Auto) 58 42-75 % Lymphocytes (%) (Auto) 31 12-44 % Monocytes (%) (Auto) 9 0-12 % Eosinophils (%) (Auto) 2 0-10 % Basophils (%) (Auto) 0 0-10 % Neutrophils # (Auto) 4.0 1.8-7.8 10^3/uL Lymphocytes # (Auto) 2.1 1.0-4.0 10^3/uL Monocytes # (Auto) 0.6 0.0-1.0 10^3/uL Eosinophils # (Auto) 0.1 0.0-0.3 10^3/uL Basophils # (Auto) 0.0 0.0-0.1 10^3/uL Immature Granulocyte # (Auto) 0.0 0.0-0.1 10^3/uL Urine Color YELLOW Urine Clarity SL CLOUDY Urine pH 7.0 5-9 Urine Specific [place] 1.020 1.016-1.022 Urine Protein NEGATIVE NEGATIVE Urine Glucose (UA) NEGATIVE NEGATIVE Urine Ketones NEGATIVE NEGATIVE Urine Nitrite NEGATIVE NEGATIVE Urine Bilirubin NEGATIVE NEGATIVE Urine Urobilinogen 1.0 < = 1.0 MG/DL Urine Leukocyte Esterase NEGATIVE NEGATIVE Urine RBC (Auto) NEGATIVE NEGATIVE Urine RBC RARE /HPF Urine WBC 0-2 /HPF Urine Crystals PRESENT H /LPF Urine Amorphous Sediment LARGE MARIAN PHOSPHATE H /LPF Urine Bacteria TRACE /HPF Urine Casts NONE /LPF Urine Mucus NEGATIVE /LPF Urine Culture Indicated NO Sodium Level 143 135-145 MMOL/L Potassium Level 3.9 3.6-5.0 MMOL/L Chloride Level 108 H 98-107 MMOL/L Carbon Dioxide Level 22 21-32 MMOL/L Anion Gap 13 5-14 MMOL/L Blood Urea Nitrogen 14 7-18 MG/DL Creatinine 1.05 0.60-1.30 MG/DL Estimat Glomerular Filtration Rate > 60 BUN/Creatinine Ratio 13 Glucose Level 94 70-105 MG/DL Calcium Level 9.5 8.5-10.1 MG/DL Corrected Calcium 8.5-10.1 MG/DL Magnesium Level 1.8 1.6-2.4 MG/DL Total Bilirubin 0.9 0.1-1.0 MG/DL Aspartate Amino Transf (AST/SGOT) 17 5-34 U/L Alanine Aminotransferase (ALT/SGPT) 16 0-55 U/L Alkaline Phosphatase 107 40-136 U/L C-Reactive Protein High Sensitivity 0.04 0.00-0.50 MG/DL Total Protein 8.2 6.4-8.2 GM/DL Albumin 4.8 H 3.2-4.5 GM/DL Lipase 22 8-78 U/L (LAWRENCE DUTTON MD) My Orders Orders - LAWRENCE DUTTON MD Cbc With Automated Diff (07/12/20 14:49) Comprehensive Metabolic Panel (07/12/20 14:49) Hs C Reactive Protein (07/12/20 14:49) Lipase (07/12/20 14:49) Magnesium (07/12/20 14:49) Ua Culture If Indicated (07/12/20 14:49) Ed Iv/Invasive Line Start (07/12/20 14:49) Ketorolac Injection (Toradol Injection) (07/12/20 14:49) Lactated Ringers (Lr 1000 Ml Iv Solution (07/12/20 14:49) Ct Abdomen/Pelvis W (07/12/20 15:28) Iohexol Injection (Omnipaque 350 Mg/Ml 1 (07/12/20 15:45) Received Contrast (Hold Metformin- Contr (07/12/20 15:45) Ns (Ivpb) (Sodium Chloride 0.9% Ivpb Bag (07/12/20 15:45) Famotidine Injection (Pepcid Injection) (07/12/20 16:44) Lidocaine 2% Viscous 15 Ml (Xylocaine Vi (07/12/20 16:45) Antacid Suspension (Mylanta Suspension (07/12/20 16:45) (LAWRENCE DUTTON MD) Medications Given in ED Current Medications Medications Dose Ordered Sig/Macey Route Start Time Stop Time Status Last Admin Dose Admin Al Hydrox/Mg Hydrox/Simethicone 30 ml ONCE ONCE PO 07/12/20 16:45 07/12/20 16:46 DC 07/12/20 16:52 30 ML Iohexol 100 ml ONCE ONCE IV 07/12/20 15:45 07/12/20 15:46 DC 07/12/20 15:59 100 ML Lidocaine HCl 15 ml ONCE ONCE PO 07/12/20 16:45 07/12/20 16:46 DC 07/12/20 16:52 15 ML Sodium Chloride 100 ml ONCE ONCE IV 07/12/20 15:45 07/12/20 15:46 DC 07/12/20 15:59 80 ML (LAWRENCE DUTTON MD) Vital Signs/I&O 07/12/20 14:31 Temp 37.0 Pulse 148 Resp 16 B/P (MAP) 170/11 (63) Pulse Ox 98 O2 Delivery Room Air (LAWRENCE DUTTON MD) Blood Pressure Mean: 63 Progress Progress Note : Progress Note 1455: Ordered CBC, CMP, Lipase, CRP, Mg, UA. Ordered Tordol 30mg for pain. 1L LR ordered. Anticipate CT abdomen/pelvis pending UA to determine need for contrast. (YU SALMON) Progress Note : Progress Note I have seen and evaluated the patient and agree with above except as indicated. I have directed the plan of care. He is here with report of increasing 1 week abdominal pain with a few days of constipation. Pain greatest in the epigastric and left upper quadrant. Also has had some burning with urination. Denies fever chills. Does have history of bilateral kidney stones. States he has been trying to drink more water but this does increase dysuria. Denies blood in urine. Does have hemorrhoid and has had small, hard stools that have aggravated that. Evaluation as above. Plan for IV, lab, Toradol 30 mg IV for pain and LR [address] scan based on UA results. 1550: CT abdomen pelvis with contrast ordered. Monitor patient. 1732: Patient was given Pepcid 20 mg IV and GI cocktail which has helped with this the pain a little bit. CT does not show any significant acute abnormalities. Believe this is more related to epigastric pain and concerns for high acid gastric/peptic ulcerative disease. He will initiate outpatient omeprazole with Pepcid/famotidine as needed. Instructed for follow-up. Discharged home with return precautions. Patient verbalized understanding of instructions and agreement with plan. Instructed that he needs primary care physician to continue to evaluate blood pressure which was borderline high. Patient verbalized understanding. (LAWRENCE DUTTON MD) Diagnostic Imaging Diagonstic Imaging: CT Plain Films/CT/US/NM/MRI: abdomen, pelvis Comments [facility] [place], [place] NAME: [facility] REC#: [id number] PT STATUS: REG ER : 2000 PHYSICIAN: LAWRENCE DUTTON MD ADMIT DATE: 07/12/20/ER Signed Date of Exam:07/12/20 CT ABDOMEN/PELVIS W EXAMINATION: CT abdomen and pelvis with intravenous contrast. TECHNIQUE: Multiple contiguous axial images were obtained through the abdomen and pelvis after the uneventful administration of intravenous contrast. All CT scans use one or more of the following dose optimizing techniques: automated exposure control, MA and/or KvP adjustment based on patient size and exam type or iterative reconstruction. HISTORY: Generalized abdominal pain. COMPARISON: 07/24/2019. FINDINGS: The heart is unremarkable. The included lung bases are clear. The liver, spleen, pancreas, adrenal glands and kidneys have a normal appearance. There is no pathologically enlarged mesenteric or retroperitoneal adenopathy. The bowel loops are nondilated. The appendix is visualized in the right lower quadrant and has a normal appearance. Scattered diverticuli are visualized in the descending and sigmoid colon. There is no free fluid or free air. No acute osseous abnormality. Ureters and bladder are grossly normal. There is no free air, loculated collection or adenopathy in the pelvis. IMPRESSION: 1. Scattered diverticuli in the descending and sigmoid colon without evidence of acute diverticulitis. 2. No evidence of bowel obstruction. Normal appendix. No free fluid or free air. Dictated by: Dictated on workstation # [id number] Dict: 07/12/20 1615 Trans: 07/12/20 1628 [facility] [phone] Interpreted by: SARAH LEBLANC DO Electronically signed by: SARAH LEBLANC DO 07/12/20 1628 (LAWRENCE DUTTON MD) Departure Impression Primary Impression: Epigastric abdominal pain Additional Impression: Borderline hypertension Disposition: HOME, SELF-CARE Condition: Improved Departure-Patient Inst. Decision time for Depature: 17:34 (LAWRENCE DUTTON MD) Referrals: SKYLER NEWMAN DO NO,LOCAL PHYSICIAN (PCP) Primary Care Physician Patient Instructions: Severe Abdominal Pain, Adult (DC), Acid Reflux and GERD in Adults (DC), High Blood Pressure (DC) Add. Discharge Instructions: All discharge instructions reviewed with patient and/or family. Voiced understanding. You should seek primary care physician for further follow-up and care especially regarding blood pressure. You may follow-up with Dr. Newman or surgeon of your choice for further evaluation related to the upper abdominal pain. This may be related to acid reflux and/or ulcers. You should start omeprazole 20 mg daily for at least the next 6 weeks and then as needed. You may also take Pepcid/famotidine 20 mg once or twice daily as needed for acid reflux. Light diet for the next week and then advance to regular as tolerated. You should avoid spicy or heavy foods. You may take Tylenol/acetaminophen 1000 mg every 6 hours as needed for pain. Return for worse pain, vomiting, weakness, breathing problems, blood in your vomit or stool or other concerns as needed. [facility] Jul 12, 2020 15:01 LAWRENCE DUTTON MD Jul 12, 2020 15:33
[2020-07-12 15:03] LABS: ALBUMIN 4.8 GM/DL (3.2-4.5); CHLORIDE 108 MMOL/L (98-107); POTASSIUM 3.9 MMOL/L (3.6-5.0); SODIUM 143 MMOL/L (135-145)
[2020-07-12 15:04] LABS: CALCIUM 9.5 MG/DL (8.5-10.1)
[2020-07-12 15:05] LABS: GLUCOSE 94 MG/DL (70-105); TOTAL PROTEIN 8.2 GM/DL (6.4-8.2)
[2020-07-12 15:06] LABS: CARBON DIOXIDE 22 MMOL/L (21-32)
[2020-07-12 15:07] LABS: BILIRUBIN,TOTAL 0.9 MG/DL (0.1-1.0)
[2020-07-12 15:09] LABS: ALKALINE PHOSPHATASE 107 U/L (40-136); CREATININE SERUM 1.05 MG/DL (0.60-1.30); GFR ESTIMATED > 60
[2020-07-12 15:10] LABS: BUN/CREATININE RATIO 13
[2020-07-12 15:12] LABS: ALANINE AMINOTRANSFERASE 16 U/L (0-55); MAGNESIUM 1.8 MG/DL (1.6-2.4)
[2020-07-12 15:13] LABS: LIPASE 22 U/L (8-78)
[2020-07-12 15:22] LABS: AMORPHOUS SEDIMENT,UR LARGE AMOR PHOSPHATE /LPF; BACTERIA,URINE TRACE /HPF; RBC,URINE RARE /HPF; WBC,URINE 0-2 /HPF
[2020-07-12] MEDS ORDERED: IOHEXOL 350 MG/ML 100 ML (OMNIPAQUE 350) VIAL IV ONE (15:45)
[2020-07-12] MEDS ORDERED: NS 100 ML (IVPB) BAG IV ONE (15:45)
[2020-07-12] MEDS ORDERED: HOLD METFORMIN - RECEIVED CONTRAST 20 ML VIAL IV SCH (15:45)
--- NOTE | 2020-07-12 16:24 | Diagnostic Imaging Report ---
EXAMINATION: CT abdomen and pelvis with intravenous contrast. TECHNIQUE: Multiple contiguous axial images were obtained through the abdomen and pelvis after the uneventful administration of intravenous contrast. All CT scans use one or more of the following dose optimizing techniques: automated exposure control, MA and/or KvP adjustment based on patient size and exam type or iterative reconstruction. HISTORY: Generalized abdominal pain. COMPARISON: 07/24/2019. FINDINGS: The heart is unremarkable. The included lung bases are clear. The liver, spleen, pancreas, adrenal glands and kidneys have a normal appearance. There is no pathologically enlarged mesenteric or retroperitoneal adenopathy. The bowel loops are nondilated. The appendix is visualized in the right lower quadrant and has a normal appearance. Scattered diverticuli are visualized in the descending and sigmoid colon. There is no free fluid or free air. No acute osseous abnormality. Ureters and bladder are grossly normal. There is no free air, loculated collection or adenopathy in the pelvis. IMPRESSION: 1. Scattered diverticuli in the descending and sigmoid colon without evidence of acute diverticulitis. 2. No evidence of bowel obstruction. Normal appendix. No free fluid or free air. Dictated by: Dictated on workstation # [id number]
[2020-07-12] MEDS ORDERED: FAMOTIDINE 20MG/2ML IV (PEPCID) IV STA (16:44)
[2020-07-12] MEDS ORDERED: ANTACID SUSP 30 ML UDC (MYLANTA) PO ONE (16:45)
[2020-07-12] MEDS ORDERED: LIDOCAINE 2% VISCOUS 15 ML UDC PO ONE (16:45)
[2020-07-12 17:42] VITALS: BP 139/80
== END 2020-07-12 17:42 | disposition home or self-care (01) ==
LOC: EDUNIT# 14:19 → ER 14:20
DX: R10.13 Epigastric pain (principal); R03.0 Elevated blood-pressure reading, without diagnosis of hypertension; Z88.8 Allergy status to other drugs, medicaments and biological substances; Z79.52 Long term (current) use of systemic steroids
CPT/HCPCS: 36415; 74177; 80053; 81000; 83690; 83735; 85025; 86141

== ENCOUNTER 2021-09-13 11:34 | Emergency (ER) | payer BC ==
[~2021-09-13] VITALS: Ht 183 cm; Wt 99.0 kg
[~2021-09-13 11:34] MED LIST changes: -LEVO500T80 PO; +LEVO500T81 PO; -SULF1TAB35 PO; +SULF1TAB38 PO
[2021-09-13 12:07] VITALS: BP 152/89
[2021-09-13] MEDS ORDERED: NS IV 1000 ML 1,000 ML IV STA (12:10)
[2021-09-13] MEDS ORDERED: KETOROLAC 30 MG/ML VIAL IVP ONE (12:15)
[2021-09-13 12:33] LABS: BASOPHILS % (AUTO) 1 % (0-10); BILIRUBIN,URINE NEGATIVE (NEGATIVE); CLARITY,URINE CLEAR; COLOR,URINE YELLOW; EOSINOPHILS # (AUTO) 0.1 10^3/uL (0.0-0.3); EOSINOPHILS % (AUTO) 1 % (0-10); GLUCOSE, URINE (UA) NEGATIVE (NEGATIVE); HEMATOCRIT 44 % (40-54); KETONES,URINE NEGATIVE (NEGATIVE); LEUKOCYTE ESTERASE ,URINE NEGATIVE (NEGATIVE); LYMPHOCYTES # (AUTO) 1.4 10^3/uL (1.0-4.0); LYMPHOCYTES % (AUTO) 19 % (12-44); MEAN CORPUSCULAR HEMOGLOBIN 31 pg (25-34); MEAN CORPUSCULAR HGB CONC 34 g/dL (32-36); MEAN CORPUSCULAR VOLUME 91 fL (80-99); MEAN PLATELET VOLUME 10.3 fL (9.0-12.2); MONOCYTES # (AUTO) 0.7 10^3/uL (0.0-1.0); MONOCYTES % (AUTO) 9 % (0-12); NEUTROPHILS # (AUTO) 5.3 10^3/uL (1.8-7.8); NEUTROPHILS % (AUTO) 70 % (42-75); NITRITE,URINE NEGATIVE (NEGATIVE); PLATELET COUNT 210 10^3/uL (130-400); PROTEIN,URINE NEGATIVE (NEGATIVE); WHITE BLOOD COUNT 7.5 10^3/uL (4.3-11.0)
--- NOTE | 2021-09-13 12:51 | Diagnostic Imaging Report ---
PROCEDURE: CT abdomen and pelvis without contrast. TECHNIQUE: Multiple contiguous axial images were obtained through the abdomen and pelvis without the use of intravenous contrast. Auto Exposure Controls were utilized during the CT exam to meet ALARA standards for radiation dose reduction. INDICATION: Abdominal pain. COMPARISON: Correlation is made with the prior CT from 07/12/2020. FINDINGS: The lung bases are clear. The liver and gallbladder are unremarkable. There is no biliary ductal dilatation. The pancreas and spleen are unremarkable. No adrenal mass is detected. Punctate nonobstructing calculi in the right kidney are noted. No definite ureteral calculus or evidence of hydronephrosis is identified. The aorta is nonaneurysmal. The bowel loops are nonobstructed. The appendix is visualized and unremarkable. No inflammatory changes are seen. There is no free fluid or fluid collection identified. The bladder is decompressed. The prostate is unremarkable. IMPRESSION: Nonobstructing right-sided nephrolithiasis. No definite ureteral calculus or hydronephrosis is identified. No acute feature is identified. Dictated by: Dictated on workstation # [id number]
[2021-09-13 12:54] LABS: ALBUMIN 4.5 GM/DL (3.2-4.5); BILIRUBIN,TOTAL 0.7 MG/DL (0.1-1.0); CALCIUM 9.4 MG/DL (8.5-10.1); CREATININE SERUM 0.87 MG/DL (0.60-1.30); POTASSIUM 3.9 MMOL/L (3.6-5.0); TOTAL PROTEIN 7.4 GM/DL (6.4-8.2)
[2021-09-13 13:01] LABS: BACTERIA,URINE NEGATIVE /HPF
[2021-09-13] MEDS ORDERED: ACHD5005 PO (13:04)
--- NOTE | 2021-09-13 13:05 | ED Back Pain ---
General Chief Complaint: Back Problems Stated Complaint: KIDNEY PAIN Nursing Triage Note: PT AMB TO FT 1 W C/O URINARY FREQUENCY, AND BILAT FLANK PAIN THAT RADIATES TO ABD SX THIS AM. PT ADVISES HE WENT TO [facility] AND WAS SENT TO ED FOR FURTHER EVALUATION AND TX. PT A&OX4. Source of Information: Patient Exam Limitations: No Limitations History of Present Illness Date Seen by Provider: Sep 13, 2021 Time Seen by Provider: 13:01 Initial Comments Patient is a 20-year-old male who presents the bilateral flank pain with radiation to bilateral groin. Started this morning when he woke up. Patient has a history of kidney stones with lithotripsy performed in the past. States today pain feels very similar. Denies any trauma. No bowel or urine cons, saddle paresthesia, lower extremity weakness. Refuses to take any type of pain medication. Has had a lithotripsy performed in the past. Denies fever, chills, body aches, headache, dizziness. Reports some mild urine frequency. Denies nausea, vomiting, diarrhea. Allergies and Home Medications Allergies Coded Allergies: tamsulosin (Verified Allergy, Intermediate, facial swelling, 07/28/19) Patient Home Medication List Home Medication List Reviewed: Yes Hydrocodone/Acetaminophen (Hydrocodone/Acetaminophen 5 MG/325 MG TAB) 1 Each Tablet, 1 TAB PO Q6H Prescribed by: GINO ZIEGLER on 07/24/19 0901 Hydrocodone/Acetaminophen (Hydrocodone/Acetaminophen 5 MG/325 MG TAB) 1 Each Tablet, 1 TAB PO Q4-6HR Prescribed by: ROMEL WOLFE on 07/27/19 174 Hydrocodone/Acetaminophen (Hydrocodone-Acetamin 5-325 mg) 5 Mg-325 Mg Tablet, 1 TAB PO Q4H PRN for PAIN-MODERATE (5-7) Prescribed by: YANETH TELLO on 09/13/21 1304 Levofloxacin (Levofloxacin) 500 Mg Tablet, 500 MG PO DAILY Prescribed by: ROMEL WOLFE on 07/27/19 174 Metoclopramide HCl (Reglan) 10 Mg Tablet, 10 MG PO Q8H Prescribed by: GINO ZIEGLER on 07/24/19 0900 Phenazopyridine HCl (Pyridium) 200 Mg Tablet, 1 TAB PO TID Prescribed by: ROMEL WOLFE on 07/27/19 1740 Prednisone (Prednisone) 20 Mg Tab, 20 MG PO DAILY Prescribed by: SHAKIRA WYNN on 10/26/17 1550 Sulfamethoxazole/Trimethoprim (Bactrim Ds Tablet) 1 Each Tablet, 1 EACH PO BID Prescribed by: GINO ZIEGLER on 07/24/19 0900 Tamsulosin HCl (Flomax) 0.4 Mg Cap, 0.4 MG PO DAILY Prescribed by: GINO ZIEGLER on 07/24/19 0900 Tramadol HCl (Ultram) 50 Mg Tablet, 50 MG PO Q4H Prescribed by: FARZANA PINEDA on 03/07/202102 Review of Systems Constitutional: No chills, No diaphoresis EENTM: No hearing loss, No ear pain, No blurred vision, No double vision Respiratory: No cough, No dyspnea on exertion Cardiovascular: No chest pain, No edema Gastrointestinal: abdominal pain; No diarrhea, No loss of appetite, No vomiting Genitourinary: No decreased output, No discharge; frequency; No hematuria, No hesitancy Musculoskeletal: back pain; No joint pain, No muscle twitching, No muscle weakness All Other Systems Reviewed Negative Unless Noted: Yes Past Paubdtt-Cbqqcq-Wmajbj Hx Patient Social History Tobacco Use?: No Use of E-Cig and/or Vaping dev: No Substance use?: Yes Substance type: Marijuana Alcohol Use?: No Immunizations Up To Date Tetanus Booster (TDap): Unknown PED Vaccines UTD: Yes Influenza Vaccine Up-to-Date: No; Not Current Seasonal Allergies Seasonal Allergies: No Past Medical History Surgery/Hospitalization HX: LITHOTRIPSY Surgeries: Yes (cystoscopy with lithotripsy) Adenoidectomy, Renal, Tonsillectomy Respiratory: No Cardiac: No Neurological: No Reproductive Disorders: No Sexually Transmitted Disease: No HIV/AIDS: No Genitourinary: Yes Kidney Infection, Kidney Stones Gastrointestinal: No Musculoskeletal: No Endocrine: No HEENT: Yes (S/P T&A) Loss of Vision: Denies Hearing Impairment: Denies Cancer: No Psychosocial: No Integumentary: No Blood Disorders: No Adverse Reaction/Blood Tranf: No Family Medical History No Pertinent Family Hx Physical Exam Vital Signs Vital Signs - First Documented 09/13/21 12:07 Temp 36.6 Pulse 84 Resp 20 B/P (MAP) 152/89 (110) Pulse Ox 98 O2 Delivery Room Air Capillary Refill : Height, Weight, BMI Height: 6'0" Weight: 155lbs. 0.0oz. 70.428132qu; 29.00 BMI Method:Stated General Appearance: No Apparent Distress, WD/WN HEENT: PERRL/EOMI, TMs Normal, Normal ENT Inspection, Pharynx Normal Neck: Full Range of Motion, Normal Inspection, Non Tender, Supple Cardiovascular: Regular Rate, Rhythm, No Edema, No Gallop, No Murmur Respiratory: Chest Non Tender, Lungs Clear, Normal Breath Sounds Gastrointestinal: Normal Bowel Sounds, No Pulsatile Mass, Non Tender, Soft Back: CVA Tenderness (L), CVA Tenderness (R) Extremity: Normal Capillary Refill, Normal Inspection, Normal Range of Motion Neurologic/Psychiatric: Alert, Oriented x3, No Motor/Sensory Deficits, Normal Mood/Affect, polygraph operator II-XII Norm as Tested Skin: Normal Color Progress/Results/Core Measures Results/Orders Lab Results Laboratory Tests Test 09/13/21 12:10 Range/Units White Blood Count 7.5 4.3-11.0 10^3/uL Red Blood Count 4.84 4.30-5.52 10^6/uL Hemoglobin 15.0 13.3-17.7 g/dL Hematocrit 44 40-54 % Mean Corpuscular Volume 91 80-99 fL Mean Corpuscular Hemoglobin 31 25-34 pg Mean Corpuscular Hemoglobin Concent 34 32-36 g/dL Red Cell Distribution Width 12.1 10.0-14.5 % Platelet Count 210 130-400 10^3/uL Mean Platelet Volume 10.3 9.0-12.2 fL Immature Granulocyte % (Auto) 0 % Neutrophils (%) (Auto) 70 42-75 % Lymphocytes (%) (Auto) 19 12-44 % Monocytes (%) (Auto) 9 0-12 % Eosinophils (%) (Auto) 1 0-10 % Basophils (%) (Auto) 1 0-10 % Neutrophils # (Auto) 5.3 1.8-7.8 10^3/uL Lymphocytes # (Auto) 1.4 1.0-4.0 10^3/uL Monocytes # (Auto) 0.7 0.0-1.0 10^3/uL Eosinophils # (Auto) 0.1 0.0-0.3 10^3/uL Basophils # (Auto) 0.0 0.0-0.1 10^3/uL Immature Granulocyte # (Auto) 0.0 0.0-0.1 10^3/uL Urine Color YELLOW Urine Clarity CLEAR Urine pH 8.0 5-9 Urine Specific [place] 1.015 L 1.016-1.022 Urine Protein NEGATIVE NEGATIVE Urine Glucose (UA) NEGATIVE NEGATIVE Urine Ketones NEGATIVE NEGATIVE Urine Nitrite NEGATIVE NEGATIVE Urine Bilirubin NEGATIVE NEGATIVE Urine Urobilinogen 0.2 < = 1.0 MG/DL Urine Leukocyte Esterase NEGATIVE NEGATIVE Urine RBC (Auto) NEGATIVE NEGATIVE Urine RBC NONE /HPF Urine WBC NONE /HPF Urine Crystals NONE /LPF Urine Bacteria NEGATIVE /HPF Urine Casts NONE /LPF Urine Mucus NEGATIVE /LPF Urine Culture Indicated NO Sodium Level 141 135-145 MMOL/L Potassium Level 3.9 3.6-5.0 MMOL/L Chloride Level 107 98-107 MMOL/L Carbon Dioxide Level 24 21-32 MMOL/L Anion Gap 10 5-14 MMOL/L Blood Urea Nitrogen 11 7-18 MG/DL Creatinine 0.87 0.60-1.30 MG/DL Estimat Glomerular Filtration Rate 125 BUN/Creatinine Ratio 13 Glucose Level 88 70-105 MG/DL Calcium Level 9.4 8.5-10.1 MG/DL Corrected Calcium 9.0 8.5-10.1 MG/DL Total Bilirubin 0.7 0.1-1.0 MG/DL Aspartate Amino Transf (AST/SGOT) 15 5-34 U/L Alanine Aminotransferase (ALT/SGPT) 19 0-55 U/L Alkaline Phosphatase 88 40-136 U/L Total Protein 7.4 6.4-8.2 GM/DL Albumin 4.5 3.2-4.5 GM/DL Lipase 11 8-78 U/L My Orders Orders - LEANA FLOYD Ua Culture If Indicated (09/13/21 11:53) Cbc With Automated Diff (09/13/21 12:10) Comprehensive Metabolic Panel (09/13/21 12:10) Lipase (09/13/21 12:10) Ns Iv 1000 Ml (Sodium Chloride 0.9%) (09/13/21 12:10) Ketorolac Injection (Toradol Injection) (09/13/21 12:15) Ct Abdomen/Pelvis Wo (09/13/21 12:10) Medications Given in ED Current Medications Medications Dose Ordered Sig/Macey Route Start Time Stop Time Status Last Admin Dose Admin Ketorolac Tromethamine 30 mg ONCE ONCE IVP 09/13/21 12:15 09/13/21 12:16 DC 09/13/21 12:26 30 MG Vital Signs/I&O 09/13/21 12:07 Temp 36.6 Pulse 84 Resp 20 B/P (MAP) 152/89 (110) Pulse Ox 98 O2 Delivery Room Air Blood Pressure Mean: 110 Departure Communication (PCP) Right sided nephrolithiasis with nonobstructing. No hydronephrosis. No other acute abnormality. Urinalysis negative for infection or hematuria. Lab work otherwise unremarkable. Did discharge with pain medication. Allergic to Flomax. Has followed up with urology in the past which I recommend. No trauma. Patient no acute distress. No vomiting or diarrhea. Vital signs stables. Patient requesting be discharged. Return precaution were discussed with patient. Impression Primary Impression: Nephrolithiasis Disposition: HOME, SELF-CARE Condition: Stable Departure-Patient Inst. Decision time for Depature: 13:03 Referrals: NO,LOCAL PHYSICIAN (PCP) Primary Care Physician LORETO WILSON MD Patient Instructions: Kidney Stone, Adult ED Scripts Hydrocodone/Acetaminophen (Hydrocodone-Acetamin 5-325 mg) 5 Mg-325 Mg Tablet 1 TAB PO Q4H PRN for PAIN-MODERATE (5-7), #8 TAB Prov: LEANA FLOYD 09/13/21 LEANA FLOYD Sep 13, 2021 13:04
== END 2021-09-13 13:10 | disposition home or self-care (01) ==
LOC: EDUNIT# 11:34 → ER 11:37
DX: N20.0 Calculus of kidney (principal)
CPT/HCPCS: 36415; 74176; 80053; 81000; 83690; 85025

== ENCOUNTER 2022-01-02 12:02 | Emergency (ER) | payer BC ==
[~2022-01-02] VITALS: Ht 183 cm; Wt 100.0 kg
[2022-01-02] MEDS ORDERED: KETOROLAC 30 MG/ML VIAL IVP STA (12:28)
[2022-01-02] MEDS ORDERED: NS IV 1000 ML 1,000 ML IV SCH (12:30)
[2022-01-02 13:20] LABS: BILIRUBIN,URINE NEGATIVE (NEGATIVE); CLARITY,URINE CLEAR; COLOR,URINE YELLOW; GLUCOSE, URINE (UA) NEGATIVE (NEGATIVE); KETONES,URINE NEGATIVE (NEGATIVE); LEUKOCYTE ESTERASE ,URINE NEGATIVE (NEGATIVE); NITRITE,URINE NEGATIVE (NEGATIVE); PROTEIN,URINE NEGATIVE (NEGATIVE)
--- NOTE | 2022-01-02 13:31 | ED GU-Male ---
General Chief Complaint: - Reproductive Stated Complaint: BACK PAIN Nursing Triage Note: PT AMB TO FT 1 W C/O LOWER BACK PAIN R/T KIDNEY STONES X3 DAYS. PT REPORTS IRREGULAR VOIDING PATTERNS, APPEARS RESTLESS DURING TRIAGE. PT A&OX4. History of Present Illness Date Seen by Provider: Jan 02, 2022 Time Seen by Provider: 12:24 Initial Comments 21 year old male presents with low back pain with history of kidney stones. He started having low back pain on the right and left side approximately 3 days ago. He has had lithotripsy in the past at [facility]. He has tried [id number] pain medicine with no improvement. He has periods of urinary retention but is currently able to urinate with no pain or blood in his urine. He denies any nausea or vomiting at this time. Timing/Duration: intermittent Severity/Quality: moderate Location: suprapubic Radiation: right flank, left flank Associated Symptoms: No abdominal pain; dysuria; No fever/chills, No loss of bladder control; lower back pain; No nausea/vomiting Allergies and Home Medications Allergies Coded Allergies: tamsulosin (Verified Allergy, Intermediate, facial swelling, 07/28/19) Patient Home Medication List Home Medication List Reviewed: Yes Hydrocodone/Acetaminophen (Hydrocodone/Acetaminophen 5 MG/325 MG TAB) 1 Each Tablet, 1 TAB PO Q6H Prescribed by: GINO ZIEGLER on 07/24/19 0901 Hydrocodone/Acetaminophen (Hydrocodone/Acetaminophen 5 MG/325 MG TAB) 1 Each Tablet, 1 TAB PO Q4-6HR Prescribed by: ROMEL WOLFE on 07/27/19 174 Hydrocodone/Acetaminophen (Hydrocodone-Acetamin 5-325 mg) 5 Mg-325 Mg Tablet, 1 TAB PO Q4H PRN for PAIN-MODERATE (5-7) Prescribed by: YANETH TELLO on 09/13/21 1304 Levofloxacin (Levofloxacin) 500 Mg Tablet, 500 MG PO DAILY Prescribed by: ROMEL WOLFE on 07/27/19 174 Metoclopramide HCl (Reglan) 10 Mg Tablet, 10 MG PO Q8H Prescribed by: GINO ZIEGLER on 07/24/19 0900 Phenazopyridine HCl (Pyridium) 200 Mg Tablet, 1 TAB PO TID Prescribed by: ROMEL WOLFE on 07/27/19 1740 Prednisone (Prednisone) 20 Mg Tab, 20 MG PO DAILY Prescribed by: SHAKIRA WYNN on 10/26/17 1550 Sulfamethoxazole/Trimethoprim (Bactrim Ds Tablet) 1 Each Tablet, 1 EACH PO BID Prescribed by: GINO ZIEGLER on 07/24/19 0900 Tamsulosin HCl (Flomax) 0.4 Mg Cap, 0.4 MG PO DAILY Prescribed by: GINO ZIEGLER on 07/24/19 0900 Tramadol HCl (Ultram) 50 Mg Tablet, 50 MG PO Q4H Prescribed by: FARZANA PINEDA on 03/07/20 210 Review of Systems Review of Systems Constitutional: no symptoms reported, see HPI Genitourinary: see HPI, dysuria, flank pain All Other Systemes Reviewed Negative Unless Noted: Yes Past Chujudh-Crbksm-Bjuodb Hx Patient Social History Tobacco Use?: No Use of E-Cig and/or Vaping dev: No Substance use?: Yes Substance type: Marijuana Alcohol Use?: No Immunizations Up To Date Tetanus Booster (TDap): Unknown PED Vaccines UTD: Yes First/Initial COVID19 Vaccinat: NONE Second COVID19 Vaccination Dio: NONE Third COVID19 Vaccination Date: NONE 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 Quill Machine Operator: NONE Seasonal Allergies Seasonal Allergies: No Past Medical History Surgery/Hospitalization HX: DUAL LITHOTRIPSY Surgeries: Yes (cystoscopy with lithotripsy) Adenoidectomy, Renal, Tonsillectomy Respiratory: No Cardiac: No Neurological: No Reproductive Disorders: No Sexually Transmitted Disease: No HIV/AIDS: No Genitourinary: Yes Kidney Infection, Kidney Stones Gastrointestinal: No Musculoskeletal: No Endocrine: No HEENT: Yes (S/P T&A) Loss of Vision: Denies Hearing Impairment: Denies Cancer: No Psychosocial: No Integumentary: No Blood Disorders: No Adverse Reaction/Blood Tranf: No Family Medical History Reviewed Nursing Family Hx No Pertinent Family Hx Physical Exam Vital Signs Vital Signs - First Documented 01/02/22 12:24 Temp 36.8 Pulse 85 Resp 20 B/P (MAP) 134/93 (107) Pulse Ox 100 O2 Delivery Room Air Capillary Refill : Less Than 3 Seconds Height, Weight, BMI Height: 6'0" Weight: 155lbs. 0.0oz. 70.542008sn; 29.00 BMI Method:Stated General Appearance: WD/WN, no apparent distress HEENT: PERRL/EOMI, normal ENT inspection, TMs normal, pharynx normal Neck: non-tender, full range of motion, supple, normal inspection Cardiovascular: normal peripheral pulses, regular rate, rhythm Respiratory: chest non-tender, lungs clear, normal breath sounds Gastrointestinal: normal bowel sounds, non tender, soft Extremities: normal range of motion, non-tender, normal inspection, normal capillary refill Neurologic/Psychiatric: no motor/sensory deficits, alert, normal mood/affect, oriented x 3 Progress/Results/Core Measures Suspected Sepsis SIRS Temperature: Pulse: 85 Respiratory Rate: 20 Blood Pressure 134 /93 Mean: 107 Results/Orders Lab Results Laboratory Tests Test 01/02/22 13:08 Range/Units Urine Color YELLOW Urine Clarity CLEAR Urine pH 8.0 5-9 Urine Specific [place] 1.020 1.016-1.022 Urine Protein NEGATIVE NEGATIVE Urine Glucose (UA) NEGATIVE NEGATIVE Urine Ketones NEGATIVE NEGATIVE Urine Nitrite NEGATIVE NEGATIVE Urine Bilirubin NEGATIVE NEGATIVE Urine Urobilinogen 1.0 < = 1.0 MG/DL Urine Leukocyte Esterase NEGATIVE NEGATIVE Urine RBC (Auto) TRACE-I H NEGATIVE Urine RBC 5-10 H /HPF Urine WBC NONE /HPF Urine Crystals PRESENT H /LPF Urine Amorphous Sediment FEW MARIAN PHOSPHATE H /LPF Urine Bacteria NEGATIVE /HPF Urine Casts NONE /LPF Urine Mucus LARGE H /LPF Urine Culture Indicated NO My Orders Orders - STACY COHEN Ua Culture If Indicated (01/02/22 12:28) Ed Iv/Invasive Line Start (01/02/22 12:28) Ns Iv 1000 Ml (Sodium Chloride 0.9%) (01/02/22 12:30) Ketorolac Injection (Toradol Injection) (01/02/22 12:28) Ct Abd/Pelvis Wo(Kidney Stone) (01/02/22 13:17) Vital Signs/I&O 01/02/22 12:24 Temp 36.8 Pulse 85 Resp 20 B/P (MAP) 134/93 (107) Pulse Ox 100 O2 Delivery Room Air Capillary Refill : Less Than 3 Seconds Blood Pressure Mean: 107 Progress Note : Time: 12:24 Progress Note Patient seen and evaluated, will obtain labs and CT abdomen and pelvis. 1315 patient voided and small stone noted in toilet, he did not have a strainer. Continues to have mild low back pain, will get CT. 1405 patient reports resolution of symptoms, discharge instructions and return precautions reviewed. Diagnostic Imaging Diagonstic Imaging: CT Plain Films/CT/US/NM/MRI: abdomen, pelvis Comments NAME: [facility] REC#: [id number] PT STATUS: REG ER : 2000 PHYSICIAN: STACY COHEN ADMIT DATE: 01/02/22/ER Draft Date of Exam:01/02/22 CT ABD/PELVIS WO(KIDNEY STONE) EXAMINATION: CT abdomen and pelvis without contrast. TECHNIQUE: Multiple contiguous axial images were obtained through the abdomen and pelvis without the use of intravenous contrast. All CT scans use one or more of the following dose optimizing techniques: automated exposure control, MA and/or KvP adjustment based on patient size and exam type or iterative reconstruction. HISTORY: Flank pain COMPARISON: 09/13/2021 FINDINGS: Limited views of the lower thorax are unremarkable. The liver is normal without focal lesion. There is no biliary ductal dilation. Gallbladder is normal. Pancreas is normal. Spleen is normal. Adrenal glands are normal. There is a nonobstructing 2 mm stone in the right kidney. 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 No ureteral stones. There is no hydronephrosis. Urinary bladder is normal. Bowel is normal in caliber without obstruction or inflammation. No free fluid or air. No abdominal or pelvic lymphadenopathy. Aorta is normal in caliber without aneurysm. There are no suspicious osseus lesions. IMPRESSION: 1. Nonobstructing right renal stone the medullary nephrocalcinosis. No ureteral stones. Dictated on workstation # [id number] Dict: 01/02/22 1352 Trans: 01/02/22 1404 [facility] [id number] Interpreted by: MARIELA PLATA MD Electronically signed by: Reviewed: Reviewed by Me Departure Impression Primary Impression: Urolithiasis Qualified Codes: N21.8 - Other lower urinary tract calculus Disposition: HOME, SELF-CARE Condition: Improved Departure-Patient Inst. Decision time for Depature: 14:05 Referrals: NO,LOCAL PHYSICIAN (PCP/Family) Primary Care Physician Patient Instructions: Kidney Stones (DC) Add. Discharge Instructions: Increase water intake, strain urine at all times. Call Dr. Mancera for follow-up, if symptoms continue. Activity as tolerated. Return to the emergency department for new, urgent healthcare needs. All discharge instructions reviewed with patient and/or family. Voiced understanding. STACY COHEN Jan 02, 2022 13:31
[2022-01-02 13:39] LABS: AMORPHOUS SEDIMENT,UR FEW AMOR PHOSPHATE /LPF; BACTERIA,URINE NEGATIVE /HPF
--- NOTE | 2022-01-02 14:04 | Diagnostic Imaging Report ---
EXAMINATION: CT abdomen and pelvis without contrast. TECHNIQUE: Multiple contiguous axial images were obtained through the abdomen and pelvis without the use of intravenous contrast. All CT scans use one or more of the following dose optimizing techniques: automated exposure control, MA and/or KvP adjustment based on patient size and exam type or iterative reconstruction. HISTORY: Flank pain COMPARISON: 09/13/2021 FINDINGS: Limited views of the lower thorax are unremarkable. The liver is normal without focal lesion. There is no biliary ductal dilation. Gallbladder is normal. Pancreas is normal. Spleen is normal. Adrenal glands are normal. There is a nonobstructing 2 mm stone in the right kidney. 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 No ureteral stones. There is no hydronephrosis. Urinary bladder is normal. Bowel is normal in caliber without obstruction or inflammation. No free fluid or air. No abdominal or pelvic lymphadenopathy. Aorta is normal in caliber without aneurysm. There are no suspicious osseus lesions. IMPRESSION: 1. Nonobstructing right renal stone the medullary nephrocalcinosis. No ureteral stones. Dictated by: Dictated on workstation # [id number]
[2022-01-02 14:24] VITALS: BP 115/67
== END 2022-01-02 14:24 | disposition home or self-care (01) ==
LOC: EDUNIT# 12:02 → ER 12:03
DX: N20.9 Urinary calculus, unspecified (principal); Z98.890 Other specified postprocedural states; Z28.310 Unvaccinated for COVID-19
CPT/HCPCS: 74176; 81000

== ENCOUNTER 2022-01-30 15:07 | Emergency (ER) | payer BC ==
[~2022-01-30] VITALS: Ht 182.9 cm; Wt 99.8 kg
[~2022-01-30 15:07] MED LIST changes: +LEVO-55 PO; -LEVO500T81 PO
[2022-01-30 15:55] LABS: BILIRUBIN,URINE NEGATIVE (NEGATIVE); CLARITY,URINE CLEAR; COLOR,URINE YELLOW; GLUCOSE, URINE (UA) NEGATIVE (NEGATIVE); KETONES,URINE NEGATIVE (NEGATIVE); LEUKOCYTE ESTERASE ,URINE NEGATIVE (NEGATIVE); NITRITE,URINE NEGATIVE (NEGATIVE); PROTEIN,URINE NEGATIVE (NEGATIVE)
[2022-01-30 16:04] LABS: BACTERIA,URINE NEGATIVE /HPF; SQUAMOUS EPITHELIAL CELL,UR RARE /HPF
[2022-01-30] MEDS ORDERED: KETOROLAC 30 MG/ML VIAL IVP STA (16:14)
[2022-01-30] MEDS ORDERED: ONDANSETRON 4 MG/2 ML (SDV) Z0FRAN IVP ONE (16:15)
[2022-01-30] MEDS ORDERED: NS IV 1000 ML 1,000 ML IV SCH (16:15)
--- NOTE | 2022-01-30 16:45 | ED GU-Male ---
General Chief Complaint: Back Problems Stated Complaint: BACK PAIN Nursing Triage Note: PT AMBULATE TO ROOM 07 WITH C/O LEFT FLANK PAIN. PT REPORTS HX OF KIDNEY STONES. (STCAY COHEN) History of Present Illness Date Seen by Provider: Jan 30, 2022 Time Seen by Provider: 15:35 Initial Comments 21-year-old male with recurrent kidney stones reports 2-day history of left flank and mid back pain. He did not follow-up with urology after his last kidney stone. He reports mild nausea no vomiting. Timing/Duration: intermittent Severity/Quality: moderate Location: left flank Associated Symptoms: No abdominal pain, No dysuria, No loss of bladder control; lower back pain, nausea/vomiting; No urinary frequency (STACY COHEN) Allergies and Home Medications Allergies Coded Allergies: tamsulosin (Verified Allergy, Intermediate, facial swelling, 07/28/19) Patient Home Medication List Home Medication List Reviewed: Yes (STACY COHEN) Hydrocodone/Acetaminophen (Hydrocodone/Acetaminophen 5 MG/325 MG TAB) 1 Each Tablet, 1 TAB PO Q6H Prescribed by: GINO ZIEGLER on 07/24/19 0901 Hydrocodone/Acetaminophen (Hydrocodone/Acetaminophen 5 MG/325 MG TAB) 1 Each Tablet, 1 TAB PO Q4-6HR Prescribed by: ROMEL WOLFE on 07/27/19 1740 Hydrocodone/Acetaminophen (Hydrocodone-Acetamin 5-325 mg) 5 Mg-325 Mg Tablet, 1 TAB PO Q4H PRN for PAIN-MODERATE (5-7) Prescribed by: YANETH TELLO on 09/13/21 1304 Hydrocodone/Acetaminophen (Hydrocodone-Acetamin 5-325 mg) 5 Mg-325 Mg Tablet, 1 TAB PO Q6H PRN for PAIN-MODERATE (5-7) Prescribed by: STACY COHEN on 01/30/22 1707 Levofloxacin (Levofloxacin) 500 Mg Tablet, 500 MG PO DAILY Prescribed by: ROMEL WOLFE on 07/27/19 1740 Metoclopramide HCl (Reglan) 10 Mg Tablet, 10 MG PO Q8H Prescribed by: GINO ZIEGLER on 07/24/19 0900 Ondansetron (Ondansetron Odt) 4 Mg Tab.rapdis, 4 MG PO Q6H PRN for NAUSEA /VOMITING Prescribed by: STACY COHEN on 01/30/22 1707 Phenazopyridine HCl (Pyridium) 200 Mg Tablet, 1 TAB PO TID Prescribed by: ROMEL WOLFE on 07/27/19 1740 Prednisone (Prednisone) 20 Mg Tab, 20 MG PO DAILY Prescribed by: SHAKIRA WYNN on 10/26/17 1550 Sulfamethoxazole/Trimethoprim (Bactrim Ds Tablet) 1 Each Tablet, 1 EACH PO BID Prescribed by: GINO ZIEGLER on 07/24/19 0900 Tamsulosin HCl (Flomax) 0.4 Mg Cap, 0.4 MG PO DAILY Prescribed by: GINO ZIEGLER on 07/24/19 0900 Tramadol HCl (Ultram) 50 Mg Tablet, 50 MG PO Q4H Prescribed by: FARZANA PINEDA on 03/07/20 210 Review of Systems Review of Systems Constitutional: no symptoms reported, see HPI Genitourinary: see HPI, flank pain (left) (STACY COHEN) All Other Systemes Reviewed Negative Unless Noted: Yes (STACY COHEN) Past Mhzsrwz-Ataxhu-Gyegei Hx Patient Social History Tobacco Use?: No Smoking Status: Never a Smoker Smokeless Tobacco Frequency: Never a User Use of E-Cig and/or Vaping dev: No Use of E-Cig and/or Vaping Chris: Never a User Substance use?: Yes Substance type: Marijuana Substance frequency: Daily Alcohol Use?: Yes Alcohol Frequency: Once in a while Pt feels they are or have been: Yes (STACY COHEN) Immunizations Up To Date Tetanus Booster (TDap): Unknown PED Vaccines UTD: Yes First/Initial COVID19 Vaccinat: NONE Second COVID19 Vaccination Dio: NONE Third COVID19 Vaccination Date: NONE (STACY COHEN) Seasonal Allergies Seasonal Allergies: No (STACY COHEN) Past Medical History Surgery/Hospitalization HX: DUAL LITHOTRIPSY Surgeries: Yes (cystoscopy with lithotripsy) Adenoidectomy, Renal, Tonsillectomy Respiratory: No Cardiac: No Neurological: No Reproductive Disorders: No Sexually Transmitted Disease: No HIV/AIDS: No Genitourinary: Yes Kidney Infection, Kidney Stones Gastrointestinal: No Musculoskeletal: No Endocrine: No HEENT: Yes (S/P T&A) Loss of Vision: Denies Hearing Impairment: Denies Cancer: No Psychosocial: No Integumentary: No Blood Disorders: No Adverse Reaction/Blood Tranf: No (STACY COHEN) Family Medical History Reviewed Nursing Family Hx (STACY COHEN) No Pertinent Family Hx (STACY COHENP) Physical Exam Vital Signs Vital Signs - First Documented 01/30/22 01/30/22 15:35 17:31 Temp 36.8 Pulse 97 Resp 20 B/P (MAP) 134/93 (107) Pulse Ox 100 O2 Delivery Room Air (SHAKIRA FARRIS MD) Vital Signs Capillary Refill : Less Than 3 Seconds (STACY COHENP) Height, Weight, BMI Height: 6'0" Weight: 155lbs. 0.0oz. [id number]; 29.00 BMI Method:Stated General Appearance: WD/WN, mild distress Cardiovascular: normal peripheral pulses, regular rate, rhythm Respiratory: chest non-tender, lungs clear, normal breath sounds Gastrointestinal: normal bowel sounds, non tender, soft; No rebound, No tenderness Back: normal inspection, no vertebral tenderness, CVA tenderness (L) Neurologic/Psychiatric: no motor/sensory deficits, alert, normal mood/affect, oriented x 3 (STACY COHEN) Progress/Results/Core Measures Suspected Sepsis SIRS Temperature: Pulse: 97 Respiratory Rate: 20 Blood Pressure 134 /93 Mean: 107 (STACY COHEN) Results/Orders Lab Results Laboratory Tests Test 01/30/22 15:44 Range/Units Urine Color YELLOW Urine Clarity CLEAR Urine pH 7.0 5-9 Urine Specific Duncan 1.020 1.016-1.022 Urine Protein NEGATIVE NEGATIVE Urine Glucose (UA) NEGATIVE NEGATIVE Urine Ketones NEGATIVE NEGATIVE Urine Nitrite NEGATIVE NEGATIVE Urine Bilirubin NEGATIVE NEGATIVE Urine Urobilinogen 0.2 < = 1.0 MG/DL Urine Leukocyte Esterase NEGATIVE NEGATIVE Urine RBC (Auto) NEGATIVE NEGATIVE Urine RBC NONE /HPF Urine WBC NONE /HPF Urine Squamous Epithelial Cells RARE /HPF Urine Crystals NONE /LPF Urine Bacteria NEGATIVE /HPF Urine Casts NONE /LPF Urine Mucus NEGATIVE /LPF Urine Culture Indicated NO (SHAKIRA FARRIS MD) Vital Signs/I&O 01/30/22 01/30/22 15:35 17:31 Temp 36.8 36.8 Pulse 97 85 Resp 20 17 B/P (MAP) 134/93 (107) 130/88 Pulse Ox 100 O2 Delivery Room Air Room Air (SHAKIRA FARRIS MD) Vital Signs/I&O Capillary Refill : Less Than 3 Seconds (STACY COHEN) Blood Pressure Mean: 107 Diagnostic Imaging Diagonstic Imaging: CT Plain Films/CT/US/NM/MRI: abdomen, pelvis Comments NAME: [facility] REC#: [id number] PT STATUS: REG ER : 2000 PHYSICIAN: STACY COHEN ADMIT DATE: 01/30/22/ER Signed Date of Exam:01/30/22 CT ABD/PELVIS WO(KIDNEY STONE) PROCEDURE: CT urinary tract, rule out kidney stone. TECHNIQUE: Multiple contiguous axial images were obtained through the abdomen and pelvis without the use of intravenous contrast. Auto Exposure Controls were utilized during the CT exam to meet ALARA standards for radiation dose reduction. INDICATION: Flank pain. COMPARISON: Prior examination from 01/02/2022. FINDINGS: The heart size is normal. The lung bases are clear. The liver is normal in size without focal lesions. Gallbladder is unremarkable. There is no biliary ductal dilatation. Spleen is normal. Pancreas and adrenal glands are unremarkable. There is a 3 mm nonobstructing right renal calculus. There is no evidence of obstructive uropathy. The aorta is nonaneurysmal. The bowel gas pattern is nonspecific. Appendix is normal. There is no free air. There is no ascites. There is no focal inflammatory change. Bladder is normal. There is no pelvic mass, adenopathy or free fluid. The osseous structures are unremarkable. IMPRESSION: 1. 3 mm nonobstructing right renal calculus; however, no evidence of obstructive uropathy. 2. Otherwise unremarkable noncontrast CT of the abdomen and pelvis. Dictated by: Dictated on workstation # [id number] Dict: 01/30/22 1638 Trans: 01/30/221654 [facility] [id number] Interpreted by: DAISHA MANCINI MD Electronically signed by: DAISHA MANCINI MD 01/30/221654 Reviewed: Reviewed by Me (STACY COHEN) Departure Impression Primary Impression: Urolithiasis Qualified Codes: N20.0 - Calculus of kidney Disposition: HOME, SELF-CARE Condition: Stable Departure-Patient Inst. Decision time for Depature: 17:05 (STACY COHEN) Referrals: NO,LOCAL PHYSICIAN (PCP) Primary Care Physician LORETO WILSON MD Patient Instructions: Kidney Stones (DC) Add. Discharge Instructions: Alternate between Tylenol 650 mg and ibuprofen 600 mg every 4 hours for pain. Take medications as prescribed. Call Dr. Lubin's office for follow-up. Strain urine at all times. Return to the emergency department for new, urgent healthcare needs. All discharge instructions reviewed with patient and/or family. Voiced understanding. Scripts Hydrocodone/Acetaminophen (Hydrocodone-Acetamin 5-325 mg) 5 Mg-325 Mg Tablet 1 TAB PO Q6H PRN for PAIN-MODERATE (5-7), #12 TAB 0 Refills Prov: STACY COHEN 01/30/22 Ondansetron (Ondansetron Odt) 4 Mg Tab.rapdis 4 MG PO Q6H PRN for NAUSEA/VOMITING, #8 TAB 0 Refills Prov: STACY COHEN 01/30/22 ATTENDING PHYSICIAN NOTE: I was physically present as attending physician in the emergency department dur ing the care of this patient, but I was not directly involved in the decision making or delivery of care for this patient. (SHAKIRA FARRIS MD) Copy Copies To 1: LORETO WILSON MD, AMY ARNP Jan 30, 2022 16:45 SHAKIRA FARRIS MD Feb 02, 2022 02:10
--- NOTE | 2022-01-30 16:55 | Diagnostic Imaging Report ---
PROCEDURE: CT urinary tract, rule out kidney stone. TECHNIQUE: Multiple contiguous axial images were obtained through the abdomen and pelvis without the use of intravenous contrast. Auto Exposure Controls were utilized during the CT exam to meet ALARA standards for radiation dose reduction. INDICATION: Flank pain. COMPARISON: Prior examination from 01/02/2022. FINDINGS: The heart size is normal. The lung bases are clear. The liver is normal in size without focal lesions. Gallbladder is unremarkable. There is no biliary ductal dilatation. Spleen is normal. Pancreas and adrenal glands are unremarkable. There is a 3 mm nonobstructing right renal calculus. There is no evidence of obstructive uropathy. The aorta is nonaneurysmal. The bowel gas pattern is nonspecific. Appendix is normal. There is no free air. There is no ascites. There is no focal inflammatory change. Bladder is normal. There is no pelvic mass, adenopathy or free fluid. The osseous structures are unremarkable. IMPRESSION: 1. 3 mm nonobstructing right renal calculus; however, no evidence of obstructive uropathy. 2. Otherwise unremarkable noncontrast CT of the abdomen and pelvis. Dictated by: Dictated on workstation # [id number]
[2022-01-30] MEDS ORDERED: ONDA4TAB11 PO (17:07)
[2022-01-30] MEDS ORDERED: ACHD5005 PO (17:07)
[2022-01-30 17:31] VITALS: BP 130/88
== END 2022-01-30 17:31 | disposition home or self-care (01) ==
LOC: EDUNIT# 15:07 → ER 15:13
DX: N20.0 Calculus of kidney (principal); Z28.310 Unvaccinated for COVID-19
CPT/HCPCS: 74176; 81000

== ENCOUNTER 2022-06-23 14:05 | Emergency (ER) | payer BC ==
[~2022-06-23] VITALS: Ht 182 cm; Wt 90.7 kg
[~2022-06-23 14:05] MED LIST changes: +ONDA4TAB11 PO
--- NOTE | 2022-06-23 14:34 | ED Headache ---
General Chief Complaint: Head/Cervical Problems Stated Complaint: PRESSURE IN HEAD Nursing Triage Note: pt presents to ed via pov from home with complaints of pressure in head and behind ears x 2 weeks. pt reports he has been anxious about it and has had difficulty sleeping because he is worried about it. History of Present Illness Date Seen by Provider: Jun 23, 2022 Time Seen by Provider: 14:15 Initial Comments 21-year-old male presents with complaint of pressure in his head that is been in the back of his head and behind his ear for like 2 weeks. Patient does not really complain of headache but more of a pressure. He reports he has been really anxious about it and has been causing him anxiety issues and difficulty sleeping. Patient also is worried that maybe he is mildly schizophrenic. He does smoke marijuana frequently and has for the last 10 years. Patient reports that he talks to himself often and has conversations on his head. Patient reports that with this pressure. Allergies and Home Medications Allergies Coded Allergies: tamsulosin (Verified Allergy, Intermediate, facial swelling, 07/28/19) Patient Home Medication List Home Medication List Reviewed: Yes Hydrocodone/Acetaminophen (Hydrocodone/Acetaminophen 5 MG/325 MG TAB) 1 Each Tablet, 1 TAB PO Q6H Prescribed by: GINO ZIEGLER on 07/24/19 0901 Hydrocodone/Acetaminophen (Hydrocodone/Acetaminophen 5 MG/325 MG TAB) 1 Each Tablet, 1 TAB PO Q4-6HR Prescribed by: ROMEL WOLFE on 07/27/19 1740 Hydrocodone/Acetaminophen (Hydrocodone-Acetamin 5-325 mg) 5 Mg-325 Mg Tablet, 1 TAB PO Q4H PRN for PAIN-MODERATE (5-7) Prescribed by: YANETH TELLO on 09/13/21 1304 Hydrocodone/Acetaminophen (Hydrocodone-Acetamin 5-325 mg) 5 Mg-325 Mg Tablet, 1 TAB PO Q6H PRN for PAIN-MODERATE (5-7) Prescribed by: STACY COHEN on 01/30/22 1707 Levofloxacin (Levofloxacin) 500 Mg Tablet, 500 MG PO DAILY Prescribed by: ROMEL WOLFE on 07/27/19 1740 Metoclopramide HCl (Reglan) 10 Mg Tablet, 10 MG PO Q8H Prescribed by: GINO ZIEGLER on 07/24/19 0900 Ondansetron (Ondansetron Odt) 4 Mg Tab.rapdis, 4 MG PO Q6H PRN for VERNON SEA/VOMITING Prescribed by: STACY COHEN on 01/30/22 1707 Phenazopyridine HCl (Pyridium) 200 Mg Tablet, 1 TAB PO TID Prescribed by: ROMEL WOLFE on 07/27/19 1740 Prednisone (Prednisone) 20 Mg Tab, 20 MG PO DAILY Prescribed by: SHAKIRA WYNN on 10/26/17 1550 Sulfamethoxazole/Trimethoprim (Bactrim Ds Tablet) 1 Each Tablet, 1 EACH PO BID Prescribed by: GINO ZIEGLER on 07/24/19 0900 Tamsulosin HCl (Flomax) 0.4 Mg Cap, 0.4 MG PO DAILY Prescribed by: GINO ZIEGLER on 07/24/19 0900 Tramadol HCl (Ultram) 50 Mg Tablet, 50 MG PO Q4H Prescribed by: FARZANA PINEDA on 03/07/20 210 Review of Systems Review of Systems Constitutional: No chills, No fever Eyes: No Symptoms Reported; Denies Blurred Vision, Denies Photophobia Ears, Nose, Mouth, Throat: denies ear pain Respiratory: No cough, No short of breath Cardiovascular: No chest pain Gastrointestinal: No abdominal pain, No nausea, No vomiting Genitourinary: no symptoms reported Musculoskeletal: no symptoms reported Skin: no symptoms reported Psychiatric/Neurological: See HPI Past Yfkfshj-Ppuibk-Dbsuey Hx Patient Social History Tobacco Use?: No Substance use?: Yes Substance type: Marijuana Alcohol Use?: No Pt feels they are or have been: No Immunizations Up To Date Tetanus Booster (TDap): Unknown PED Vaccines UTD: Yes First/Initial COVID19 Vaccinat: NONE Second COVID19 Vaccination Dio: NONE Third COVID19 Vaccination Date: NONE Seasonal Allergies Seasonal Allergies: No Past Medical History Surgery/Hospitalization HX: DUAL LITHOTRIPSY Surgeries: Yes (cystoscopy with lithotripsy) Adenoidectomy, Renal, Tonsillectomy Respiratory: No Cardiac: No Neurological: No Reproductive Disorders: No Sexually Transmitted Disease: No HIV/AIDS: No Genitourinary: Yes Kidney Infection, Kidney Stones Gastrointestinal: No Musculoskeletal: No Endocrine: No HEENT: Yes (S/P T&A) Loss of Vision: Denies Hearing Impairment: Denies Cancer: No Psychosocial: No Integumentary: No Blood Disorders: No Adverse Reaction/Blood Tranf: No Family Medical History No Pertinent Family Hx Physical Exam Vital Signs Vital Signs - First Documented 06/23/22 14:15 Temp 36.3 Pulse 117 Resp 16 B/P (MAP) 140/104 (116) Pulse Ox 99 Capillary Refill : Less Than 3 Seconds Height, Weight, BMI Height: 6'0" Weight: 155lbs. 0.0oz. 70.775567re; 27.00 BMI Method:Stated General Appearance: no apparent distress HEENT: PERRL/EOMI, normal ENT inspection Neck: full range of motion, supple Cardiovascular: normal peripheral pulses, regular rate, rhythm Respiratory: lungs clear, normal breath sounds Gastrointestinal: non tender, soft Extremities: non-tender, normal inspection Psychiatric: alert, oriented x 3, other (Anxious) Crainal Nerves: normal hearing, normal speech, PERRL Coordination/Gait: normal gait Motor/Sensory: no motor deficit, no sensory deficit Skin: normal color, warm/dry Lymphatic: no adenopathy Progress/Results/Core Measures Results/Orders My Orders Orders - GINO ZIEGLER DO Ct Head Wo (06/23/22 14:18) Ketorolac Injection (Toradol Injection) (06/23/22 15:45) Orphenadrine Inj (Ed Only) (Norflex Inje (06/23/22 15:45) Vital Signs/I&O 06/23/22 14:15 Temp 36.3 Pulse 117 Resp 16 B/P (MAP) 140/104 (116) Pulse Ox 99 Blood Pressure Mean: 116 Progress Progress Note : Progress Note Patient's head CT was reviewed and shows no acute findings. Patient's physical exam is somewhat indicative of possible tension type headache. Patient was offered Toradol and Norflex however he declined. Recommend he follow-up with his primary care provider and behavioral health as he was concerned about some potential early schizophrenia and anxiety. He is not having any suicidal homicidal other ideations that are concerning at this time. Patient was stable and discharged home Diagnostic Imaging Diagonstic Imaging: CT Plain Films/CT/US/NM/MRI: head Comments Date of Exam:06/23/22 CT HEAD WO PROCEDURE: CT head without contrast. TECHNIQUE: Multiple contiguous axial images were obtained through the brain without the use of intravenous contrast. Auto Exposure Controls were utilized during the CT exam to meet ALARA standards for radiation dose reduction. INDICATION: Head pain and pressure. COMPARISON: No priors. FINDINGS: No intracranial hemorrhage, hydrocephalus, cerebral edema, mass, mass effect, nor evidence for an elevation of the intracranial pressures. Basilar cisterns are patent. There is no sulcal effacement. No cerebral edema. Ventricular system is nondilated and nondisplaced. Orbits, sinuses, and calvarium are unremarkable. IMPRESSION: Normal CT head. Reviewed: Reviewed by Me, Reviewed/Discussed Departure Impression Primary Impression: Tension type headache Qualified Codes: G44.209 - Tension-type headache, unspecified, not intractable Disposition: 01 HOME, SELF-CARE Condition: Stable Departure-Patient Inst. Referrals: NO,LOCAL PHYSICIAN (PCP/Family) Primary Care Physician Patient Instructions: Tension Headache Add. Discharge Instructions: Please follow-up with your primary care provider with any concerns. Please follow-up with behavioral health if you continue to have anxiety and other concerns. Please consider stopping marijuana use All discharge instructions reviewed with patient and/or family. Voiced understanding. GINO ZIEGLER DO Jun 23, 2022 14:34
--- NOTE | 2022-06-23 15:40 | Diagnostic Imaging Report ---
PROCEDURE: CT head without contrast. TECHNIQUE: Multiple contiguous axial images were obtained through the brain without the use of intravenous contrast. Auto Exposure Controls were utilized during the CT exam to meet ALARA standards for radiation dose reduction. INDICATION: Head pain and pressure. COMPARISON: No priors. FINDINGS: No intracranial hemorrhage, hydrocephalus, cerebral edema, mass, mass effect, nor evidence for an elevation of the intracranial pressures. Basilar cisterns are patent. There is no sulcal effacement. No cerebral edema. Ventricular system is nondilated and nondisplaced. Orbits, sinuses, and calvarium are unremarkable. IMPRESSION: Normal CT head. Dictated by: Dictated on workstation # [id number]
[2022-06-23] MEDS ORDERED: ORPHENADRINE 60 MG/2 ML (NORFLEX) AMP (ED ONLY) IM ONE (15:45)
[2022-06-23] MEDS ORDERED: KETOROLAC 30 MG/ML VIAL IM STA (15:45)
[2022-06-23 15:59] VITALS: BP 138/99
== END 2022-06-23 15:59 | disposition home or self-care (01) ==
LOC: EDUNIT# 14:05 → ER 14:07
DX: G44.209 Tension-type headache, unspecified, not intractable (principal); Z28.310 Unvaccinated for COVID-19
CPT/HCPCS: 70450

== ENCOUNTER → 2022-08-11 | Outpatient (CLI) | payer BC ==
--- NOTE | 2022-08-11 09:36 | Diagnostic Imaging Report ---
PROCEDURE: MR imaging of the brain without contrast. TECHNIQUE: Multiplanar, multisequence MR imaging of the brain was performed without contrast. INDICATION: Chronic migraine headaches. The ventricles and sulci are within normal limits. No sulcal effacement or midline shift is identified. There is no diffusion restriction to suggest acute ischemia. The normal expected flow-voids within the carotid siphons are seen. No acute intra-axial or extra-axial hemorrhage is detected. Corpus callosum is unremarkable. The sella and parasellar structures are unremarkable. Visualized paranasal sinuses are clear. IMPRESSION: Unremarkable noncontrast MRI of the brain. No acute feature is detected. Dictated by: Dictated on workstation # [id number]
== END ==
LOC: RAD 07:29
PROVIDERS: ATTEND Nurse Practitioner Family
DX: G44.52 New daily persistent headache (NDPH) (principal)
CPT/HCPCS: 70551